=== PATIENT | male | born 1970 | race Caucasian/White ===

== ENCOUNTER 2016-07-09 23:34 | Inpatient (IN) | payer MEDICARE, OTHER ==
[2016-07-10] MEDS ORDERED: RX INFO: IV CONTRAST WAS GIVEN 1 EACH MISC MISCELLANE PRN (00:44)
[2016-07-10] MEDS ORDERED: ACETAMINOPHEN TAB 500 MG TAB PO STA (00:44)
[2016-07-10] MEDS ORDERED: IBUPROFEN 600 MG TAB PO STA (00:44)
[2016-07-10 00:58] LABS: Basophils % (A) 0 %; CH 29.2; CHCM 32.1; Eosinophils # (A) 0.1 k/uL (0-0.7); Eosinophils % (A) 1 %; HDW 2.65; HGB 13.1 gm/dL (13.0-17.5); Luc # (Auto) 0.11; Luc % (Auto) 1; Lymphocytes # (A) 0.7 k/uL (1.0-4.8); Lymphocytes % (A) 7 %; MCH 29.2 pg (25.0-35.0); MCV 91.3 fL (80.0-100.0); Mean Platelet Volume 9.9; Monocytes # (A) 0.7 k/uL (0-1.0); Monocytes % (A) 7 %; Neutrophils # (A) 8.6 k/uL (1.3-7.7); Neutrophils % (A) 85 %; RDW 15.5 % (11.5-15.5); WBC 10.1 k/uL (3.8-10.6); WBC (Perox) 9.43
[2016-07-10] MEDS ORDERED: PIPERACILLIN-TAZOBACTAM 3.375 GM in DEXTROSE/WATER 1 50ML.BAG IVPB STA (00:58)
[2016-07-10] MEDS ORDERED: IV VANCOMYCIN PER PHARMACY 1 EACH MISC MISCELLANE PRN (00:58)
--- NOTE | 2016-07-10 01:03 | ED ---
General Adult HPI - General Source: patient, RN notes reviewed Mode of arrival: ambulatory Limitations: no limitations <Quynh Rolle - Last Filed: 07/10/16 02:32> <Lavell Zhu - Last Filed: 07/10/16 02:45> - General Chief complaint: Skin/Abscess/Foreign Body Stated complaint: neck pain Time Seen by Provider: 07/10/16 00:19 - History of Present Illness Initial comments: This is a 46-year-old male presents with swelling to the left side neck that started yesterday. Patient states he noticed swelling just below the left ear yesterday and woke up this morning with the swelling and redness extending to the front of his neck. Patient denies any fevers. Patient denies any trouble breathing or swallowing. Patient states this never happened to him before. Patient denies any sore throat, ear pain. Patient has been coughing. Patient also complains of a headache. Patient denies any recent shortness breath, chest pain, abdominal pain, nausea/vomiting/diarrhea, back pain, numbness, tingling, hematuria, or visual changes, or any other complaints. (Quynh Rolle) - Related Data Home Medications Medication Instructions Recorded Confirmed Albuterol Nebulized [Ventolin 2.5 mg INHALATION RT-Q4H PRN 08/06/15 05/09/16 Nebulized] FLUoxetine HCL [PROzac] 20 mg PO DAILY 08/06/15 05/09/16 Levothyroxine Sodium [Synthroid] 88 mcg PO DAILY 12/20/15 05/09/16 Methylphenidate HCl 20 mg PO TID 12/20/15 05/09/16 QUEtiapine FUMARATE 100 mg PO HS 12/20/15 05/09/16 Theophylline Anhydrous [Carrington-24] 300 mg PO DAILY 12/20/15 05/09/16 clonazePAM [KlonoPIN] 0.5 mg PO TID 12/20/15 05/09/16 Albuterol Sulfate [Proair Hfa] 2 puff INHALATION RT-Q6H PRN 02/01/16 05/09/16 Mirtazapine [Remeron] 45 mg PO HS 03/26/16 05/09/16 Previous Rx's Medication Instructions Recorded Budesonide [Pulmicort] 0.5 mg INHALATION RT-BID nebu 03/29/16 Famotidine [Pepcid] 40 mg PO HS tab 03/29/16 Formoterol Fumarate [Perforomist] 20 mcg INHALATION RT-BID nebu 03/29/16 Ipratropium-Albuterol Nebulize 3 ml INHALATION RT-QID ampul.neb 03/29/16 [Duoneb 0.5 mg-3 mg/3 ml Soln] Levofloxacin [Levaquin] 750 mg PO DAILY@1800 #7 tab 03/29/16 Mirtazapine [Remeron] 15 mg PO HS tab 03/29/16 Montelukast [Singulair] 10 mg PO HS #30 tab 03/29/16 Theophylline 24 Hour [Carrington-24] 300 mg PO BID cap.er.24h 03/29/16 predniSONE 40 mg PO DAILY #12 tab 03/29/16 Allergies Allergy/AdvReac Type Severity Reaction Status Date / Time No Known Allergies Allergy Verified 07/09/16 23:37 Review of Systems ROS Other: All systems not noted in ROS Statement are negative. <Quynh Rolle - Last Filed: 07/10/16 02:32> ROS Other: All systems not noted in ROS Statement are negative. <Lavell Zhu - Last Filed: 07/10/16 02:45> ROS Statement: Those systems with pertinent positive or pertinent negative responses have been documented in the HPI. Past Medical History Past Medical History: Asthma, COPD Additional Past Medical History / Comment(s): BACK PAIN, THROAT TUMOR REMOVED- CANCER, chemo and radiation History of Any Multi-Drug Resistant Organisms: None Reported Past Surgical History: Appendectomy Additional Past Surgical History / Comment(s): NECK SURGERY, TRACHEOTOMY, right knee surgery as a child Past Anesthesia/Blood Transfusion Reactions: No Reported Reaction Past Psychological History: ADD/ADHD, Anxiety, Bipolar, Depression, PTSD Smoking Status: Current every day smoker Past Alcohol Use History: None Reported Past Drug Use History: Marijuana Additional Drug Use History / Comment(s): 1-2 times a week - Past Family History Mother Additional Family Medical History / Comment(s): mom of colon cancer <Quynh Rolle - Last Filed: 07/10/16 02:32> General Exam Limitations: no limitations <Quynh Rolle - Last Filed: 07/10/16 02:32> <Lavell Zhu - Last Filed: 07/10/16 02:45> - General Exam Comments Initial Comments: General: The patient is awake and alert, in no distress, and does not appear acutely ill. Eye: Pupils are equal, round and reactive to light, extra-ocular movements are intact. No nystagmus. There is normal conjunctiva bilaterally. No signs of icterus. Ears: TMs pink and pearly with intact cone of light bilaterally. Normal external ear canals Nose: Nasal turbinates pink and moist Mouth and throat: There are moist mucous membranes and no oral lesions. Neck: Patient is holding his neck with his head rotated to the right. There is swelling and erythema extending from just below the left ear to the front of the neck. Patient has an old trach site that is well-healed. The neck is supple, there is no JVD. Cardiovascular: There is a regular rate and rhythm. No murmur, rub or gallop is appreciated. Respiratory: Lungs are clear to auscultation, respirations are non-labored, breath sounds are equal. No wheezes, stridor, rales, or rhonchi. Gastrointestinal: Soft, non-distended, non-tender abdomen without masses or organomegaly noted. There is no rebound or guarding present. No CVA tenderness. Bowel sounds are unremarkable. Musculoskeletal: Normal ROM, no tenderness. Strength 5/5. Sensation intact. Radial pulses equal bilaterally 2+. Neurological: A&O x 3. CN II-XII intact, There are no obvious motor or sensory deficits. Coordination appears grossly intact. Speech is normal. Skin: Skin is warm and dry and no rashes or lesions are noted. Psychiatric: Cooperative, appropriate mood & affect, normal judgment. (Quynh Rolle) EKG Findings - EKG Comments: EKG Findings:: An EKG was done at 1:34 showing sinus tachycardia with a right bundle branch block. The ventricular rate of 104, TX interval of 132, QRS duration of 116 and QTc of 444. This EKG was compared with an EKG on 2015 with similar findings except the comparison EKG was normal sinus rhythm. <Quynh Rolle - Last Filed: 07/10/16 02:32> Medical Decision Making - Lab Data Result diagrams: 07/10/16 00:36 07/10/16 00:36 <Quynh Rolle - Last Filed: 07/10/16 02:32> - Lab Data Result diagrams: 07/10/16 00:36 07/10/16 00:36 <Lavell Zhu - Last Filed: 07/10/16 02:45> - Medical Decision Making This is a 38-year-old male presents with swelling of left-sided neck started yesterday. On physical exam Patient is holding his neck with his head rotated to the right. There is swelling and erythema extending from just below the left ear to the front of the neck. Patient has an old trach site that is well- healed. The neck is supple, there is no JVD. Patient developed a fever in the EC today and was started on Tylenol and ibuprofen. Patient meets sepsis criteria. Sepsis protocol was initiated. Labs were drawn and reviewed. Patient will be started on IV Zosyn and vancomycin. An EKG was done at 1:34 showing sinus tachycardia with a right bundle branch block. The ventricular rate of 104, TX interval of 132, QRS duration of 116 and QTc of 444. This EKG was compared with an EKG on 05/09/2016 with similar findings except the comparison EKG was normal sinus rhythm. CT soft tissue neck was done and reviewed showing: #1 suggestion of diffuse cellulitis changes in the neck skin and subcutaneous areas without significant abscess collections. #2 ethmoid sinusitis changes. Report read by Dr. Vicente. Chest x-ray was done and reviewed showing: #1 possible active lung infiltrates or pneumonia changes in the right middle lobe of the lung. #2 chronic lung changes. Report read by . Influenza was checked and came back negative. I discussed this with attending physician Dr. Zhu who agrees that patient should be admitted for IV antibiotics for cellulitis. At this time Dr. Ramos was contacted. (Quynh Rolle) Patient was reevaluated by myself, Dr. Zhu. Patient resting comfortably in bed. Patient does have cellulitis extending across the anterior neck. Patient states discomfort no worsening of the previous trach site another person the neck. Patient does meet sepsis criteria. CT results and labs reviewed. Patient updated on results and plan. Dr. Ramos has been paged for admission. (Lavell Zhu) - Lab Data Lab Results 07/10/16 07/10/16 07/10/16 Range/Units 00:36 00:36 00:36 WBC 10.1 (3.8-10.6) k/uL RBC 4.50 (4.30-5.90) m/uL Hgb 13.1 (13.0-17.5) gm/dL Hct 41.0 (39.0-53.0) % MCV 91.3 (80.0-100.0) fL MCH 29.2 (25.0-35.0) pg MCHC 32.0 (31.0-37.0) g/dL RDW 15.5 (11.5-15.5) % Plt Count 145 L (150-450) k/uL Neutrophils % 85 % Lymphocytes % 7 % Monocytes % 7 % Eosinophils % 1 % Basophils % 0 % Neutrophils # 8.6 H (1.3-7.7) k/uL Lymphocytes # 0.7 L (1.0-4.8) k/uL Monocytes # 0.7 (0-1.0) k/uL Eosinophils # 0.1 (0-0.7) k/uL Basophils # 0.0 (0-0.2) k/uL PT (9.0-12.0) sec INR (<1.1) APTT (22.0-30.0) sec Sodium 137 (137-145) mmol/L Potassium 4.5 (3.5-5.1) mmol/L Chloride 100 (98-107) mmol/L Carbon Dioxide 27 (22-30) mmol/L Anion Gap 10 mmol/L BUN 19 (9-20) mg/dL Creatinine 1.10 (0.66-1.25) mg/dL Est GFR (MDRD) Af Amer >60 (>60 ml/min/1.73 sqM) Est GFR (MDRD) Non-Af >60 (>60 ml/min/1.73 sqM) Glucose 108 H (74-99) mg/dL Plasma Lactic Acid Edgar (0.7-2.0) mmol/L Calcium 8.9 (8.4-10.2) mg/dL Total Bilirubin 0.7 (0.2-1.3) mg/dL AST 16 L (17-59) U/L ALT 24 (21-72) U/L Alkaline Phosphatase 80 (38-126) U/L Total Creatine Kinase 85 (55-170) U/L CK-MB (CK-2) 1.4 (0.0-2.4) ng/mL CK-MB (CK-2) Rel Index 1.6 Troponin I <0.012 (0.000-0.034) ng/mL Total Protein 6.8 (6.3-8.2) g/dL Albumin 3.9 (3.5-5.0) g/dL Cortisol 5 ug/dL Urine Color Urine Appearance (Clear) Urine pH (5.0-8.0) Ur Specific [place] (1.001-1.035) Urine Protein (Negative) Urine Glucose (UA) (Negative) Urine Ketones (Negative) Urine Blood (Negative) Urine Nitrate (Negative) Urine Bilirubin (Negative) Urine Urobilinogen (<2.0) mg/dL Ur Leukocyte Esterase (Negative) Urine RBC (0-5) /hpf Urine WBC (0-5) /hpf Ur Squamous Epith Cells (0-4) /hpf Hyaline Casts (0-2) /lpf Urine Mucus (None) /hpf Influenza Type A RNA (Not Detectd) Influenza Type B (PCR) (Not Detectd) 07/10/16 07/10/16 07/10/16 Range/Units 00:36 00:36 00:36 WBC (3.8-10.6) k/uL RBC (4.30-5.90) m/uL Hgb (13.0-17.5) gm/dL Hct (39.0-53.0) % MCV (80.0-100.0) fL MCH (25.0-35.0) pg MCHC (31.0-37.0) g/dL RDW (11.5-15.5) % Plt Count (150-450) k/uL Neutrophils % % Lymphocytes % % Monocytes % % Eosinophils % % Basophils % % Neutrophils # (1.3-7.7) k/uL Lymphocytes # (1.0-4.8) k/uL Monocytes # (0-1.0) k/uL Eosinophils # (0-0.7) k/uL Basophils # (0-0.2) k/uL PT 10.1 (9.0-12.0) sec INR 1.0 (<1.1) APTT 27.2 (22.0-30.0) sec Sodium (137-145) mmol/L Potassium (3.5-5.1) mmol/L Chloride (98-107) mmol/L Carbon Dioxide (22-30) mmol/L Anion Gap mmol/L BUN (9-20) mg/dL Creatinine (0.66-1.25) mg/dL Est GFR (MDRD) Af Amer (>60 ml/min/1.73 sqM) Est GFR (MDRD) Non-Af (>60 ml/min/1.73 sqM) Glucose (74-99) mg/dL Plasma Lactic Acid Edgar 1.0 (0.7-2.0) mmol/L Calcium (8.4-10.2) mg/dL Total Bilirubin (0.2-1.3) mg/dL AST (17-59) U/L ALT (21-72) U/L Alkaline Phosphatase (38-126) U/L Total Creatine Kinase (55-170) U/L CK-MB (CK-2) (0.0-2.4) ng/mL CK-MB (CK-2) Rel Index Troponin I (0.000-0.034) ng/mL Total Protein (6.3-8.2) g/dL Albumin (3.5-5.0) g/dL Cortisol ug/dL Urine Color Urine Appearance (Clear) Urine pH (5.0-8.0) Ur Specific [place] (1.001-1.035) Urine Protein (Negative) Urine Glucose (UA) (Negative) Urine Ketones (Negative) Urine Blood (Negative) Urine Nitrate (Negative) Urine Bilirubin (Negative) Urine Urobilinogen (<2.0) mg/dL Ur Leukocyte Esterase (Negative) Urine RBC (0-5) /hpf Urine WBC (0-5) /hpf Ur Squamous Epith Cells (0-4) /hpf Hyaline Casts (0-2) /lpf Urine Mucus (None) /hpf Influenza Type A RNA Not Detected (Not Detectd) Influenza Type B (PCR) Not Detected (Not Detectd) 07/10/16 Range/Units 02:23 WBC (3.8-10.6) k/uL RBC (4.30-5.90) m/uL Hgb (13.0-17.5) gm/dL Hct (39.0-53.0) % MCV (80.0-100.0) fL MCH (25.0-35.0) pg MCHC (31.0-37.0) g/dL RDW (11.5-15.5) % Plt Count (150-450) k/uL Neutrophils % % Lymphocytes % % Monocytes % % Eosinophils % % Basophils % % Neutrophils # (1.3-7.7) k/uL Lymphocytes # (1.0-4.8) k/uL Monocytes # (0-1.0) k/uL Eosinophils # (0-0.7) k/uL Basophils # (0-0.2) k/uL PT (9.0-12.0) sec INR (<1.1) APTT (22.0-30.0) sec Sodium (137-145) mmol/L Potassium (3.5-5.1) mmol/L Chloride (98-107) mmol/L Carbon Dioxide (22-30) mmol/L Anion Gap mmol/L BUN (9-20) mg/dL Creatinine (0.66-1.25) mg/dL Est GFR (MDRD) Af Amer (>60 ml/min/1.73 sqM) Est GFR (MDRD) Non-Af (>60 ml/min/1.73 sqM) Glucose (74-99) mg/dL Plasma Lactic Acid Edgar (0.7-2.0) mmol/L Calcium (8.4-10.2) mg/dL Total Bilirubin (0.2-1.3) mg/dL AST (17-59) U/L ALT (21-72) U/L Alkaline Phosphatase (38-126) U/L Total Creatine Kinase (55-170) U/L CK-MB (CK-2) (0.0-2.4) ng/mL CK-MB (CK-2) Rel Index Troponin I (0.000-0.034) ng/mL Total Protein (6.3-8.2) g/dL Albumin (3.5-5.0) g/dL Cortisol ug/dL Urine Color Yellow Urine Appearance Clear (Clear) Urine pH 6.0 (5.0-8.0) Ur Specific [place] 1.022 (1.001-1.035) Urine Protein 1+ H (Negative) Urine Glucose (UA) Negative (Negative) Urine Ketones Negative (Negative) Urine Blood Trace H (Negative) Urine Nitrate Negative (Negative) Urine Bilirubin Negative (Negative) Urine Urobilinogen 2.0 (<2.0) mg/dL Ur Leukocyte Esterase Negative (Negative) Urine RBC 4 (0-5) /hpf Urine WBC 1 (0-5) /hpf Ur Squamous Epith Cells <1 (0-4) /hpf Hyaline Casts 3 H (0-2) /lpf Urine Mucus Occasional H (None) /hpf Influenza Type A RNA (Not Detectd) Influenza Type B (PCR) (Not Detectd) Disposition <Quynh Rolle - Last Filed: 07/10/16 02:32> <Lavell Zhu - Last Filed: 07/10/16 02:45> Clinical Impression: Cellulitis, Sepsis Disposition: ADMITTED IP TO THIS HOSP Referrals: Abhilash Ramos MD [Primary Care Provider] - 1-2 days
[2016-07-10 01:08] LABS: ALT 24 U/L (21-72); AST 16 U/L (17-59); Alkaline Phosphatase 80 U/L (38-126); Anion Gap 10 mmol/L; Blood Urea Nitrogen 19 mg/dL (9-20); Calcium 8.9 mg/dL (8.4-10.2); Carbon Dioxide 27 mmol/L (22-30); Chloride 100 mmol/L (98-107); Glucose 108 mg/dL (74-99); Non-African American GFR(MDRD) >60 (>60 ml/min/1.73 sqM); Partial Thromboplastin Time 27.2 sec (22.0-30.0); Potassium 4.5 mmol/L (3.5-5.1); Prothrombin Time 10.1 sec (9.0-12.0); Sodium 137 mmol/L (137-145); Total Bilirubin 0.7 mg/dL (0.2-1.3); Total Protein 6.8 g/dL (6.3-8.2)
[2016-07-10] MEDS: SODIUM CHLORIDE 0.9% 500 ML IV SCH ×2 (01:22→04:05)
[2016-07-10 01:26] LABS: Creatine Kinase 85 U/L (55-170)
--- NOTE | 2016-07-10 01:27 | XR ---
EXAMINATION TYPE: XR chest 2V DATE OF EXAM: 07/10/2016 1:06 AM COMPARISON: May 09, 2016 HISTORY: Cough congestion and weakness since yesterday TECHNIQUE: Frontal and lateral views of the chest are obtained. FINDINGS: Mild chronic lung changes are suggested bilaterally. Peribronchial cuffing is noted with possible chr onic bronchitis changes. There is mild increased opacities in the right infrahilar area as seen also in the lateral view and m ay represent mild active infiltrates in the right middle lobe of lung. The cardiac silhouette size is within normal limits. The osseous structures are intact. IMPRESSION: 1. Possible active lung infiltrates or pneumonia changes in the right middle lobe of lung. 2. Chronic lung changes.
[2016-07-10] MEDS ORDERED: VANCOMYCIN 1,500 MG in SODIUM CHLORIDE 0.9% 250 ML IVPB ONE (01:30)
[2016-07-10 01:37] LABS: Creatine Kinase MB 1.4 ng/mL (0.0-2.4); Troponin I <0.012 ng/mL (0.000-0.034)
--- NOTE | 2016-07-10 02:20 | CT ---
EXAMINATION TYPE: CT soft tissue neck w con DATE OF EXAM: 07/10/2016 2:00 AM COMPARISON: NONE HISTORY: Left sided neck swelling, redness CT DLP: 461.90 mGycm Automated exposure control for dose reduction was used. CONTRAST: CT scan of the neck is performed following with IV Contrast, patient injected with 100 mL of Omnipaqu e 300. Axial images are obtained, coronal and sagittal reformatted images are reviewed. FINDINGS: There is evidence of diffuse skin thickening in the anterior neck more on the left side and the centr al portion and spreading to the right with edema changes most likely representing diffuse cellulitis changes extending into subcutaneous areas. No significant abscess or free fluid collections are noted in the soft tissues of neck behind the skin. Airway: Slight irregularity is noted in the laryngeal area in the axial image 55 and coronal image 28 and is probably related to benign soft tissues without definite enhancing abscess collection or free fluid collections. Parotid/submandibular glands: No gross abnormality seen. Carotid/Vascular Structures: Mild atherosclerotic calcified plaques are noted in bilateral carotid bu lb and internal carotid arteries. Osseous Structures: Mild degenerative changes are present. Other: Mild mucosal thickening is noted in the ethmoid sinuses with chronic sinusitis changes. IMPRESSION: 1. Suggestion of diffuse cellulitis changes in the neck skin and subcutaneous areas without significa nt abscess collections. 2. Ethmoid sinusitis changes. A phone report is given to Quynh Rolle the PAC at the time of the dictation.
[2016-07-10] MEDS ORDERED: HYDROmorphone 1 MG/ML 1 ML SYRINGE IVP STA (02:21)
[2016-07-10 02:31] LABS: Appearance,Urine Clear (Clear); Bilirubin,Urine Negative (Negative); Glucose,Urine (UA) Negative (Negative); Ketones,Urine Negative (Negative); Leukocyte Esterase,Urine Negative (Negative); Mucus,Urine Occasional /hpf; Nitrite,Urine Negative (Negative); Particle Count 3695; Protein,Urine 1+ (Negative); RBC,Urine 4 /hpf (0-5); Specific Gravity,Urine 1.022 (1.001-1.035); Squamous Epithelial Cell,Urine <1 /hpf (0-4); UA Billing (MACRO vs. MICRO) MICRO; WBC,Urine 1 /hpf (0-5)
[2016-07-10] MEDS ORDERED: IBUPROFEN 400 MG TAB PO PRN (02:34)
[2016-07-10] MEDS ORDERED: NALOXONE 0.4 MG/ML 1 ML VIAL IV PRN (02:34)
[2016-07-10] MEDS ORDERED: HYDROmorphone 1 MG/ML 1 ML SYRINGE IV PRN (02:34)
[2016-07-10] MEDS ORDERED: ACETAMINOPHEN TAB 325 MG TAB PO PRN (02:34)
[2016-07-10 03:35] VITALS: BMI 29.2
[2016-07-10 07:21] LABS: Creatine Kinase 84 U/L (55-170)
[2016-07-10 07:34] LABS: Creatine Kinase MB 1.9 ng/mL (0.0-2.4); Troponin I <0.012 ng/mL (0.000-0.034)
[2016-07-10] MEDS: SODIUM CHLORIDE 0.9% 1,000 ML IV SCH (08:20)
[2016-07-10] MEDS: HYDROcodone/APAP 5-325MG 1 EACH TAB PO PRN ×3 (08:26→18:37)
[2016-07-10] MEDS: MORPHINE SULFATE 4 MG/ML SYRINGE IV PRN ×3 (12:20→21:50)
[2016-07-10] MEDS: VANCOMYCIN 1,500 MG in SODIUM CHLORIDE 0.9% 250 ML IVPB SCH ×2 (12:38→23:07)
[2016-07-10 12:46] LABS: Creatine Kinase 95 U/L (55-170)
[2016-07-10 12:59] LABS: Creatine Kinase MB 2.2 ng/mL (0.0-2.4); Troponin I <0.012 ng/mL (0.000-0.034)
[2016-07-10] MEDS ORDERED: ASPRIN PO PRN (13:21)
[2016-07-10] MEDS ORDERED: BUTALB PO PRN (13:21)
[2016-07-10] MEDS ORDERED: CAFF PO PRN (13:21)
[2016-07-10] MEDS ORDERED: ALBUTEROL NEBULIZED 2.5 MG/3 ML INHALATION PRN (13:21)
[2016-07-10] MEDS ORDERED: ALBUTEROL INHALER 60 PUFF/8 GM INHALER INHALATION PRN (13:21)
[2016-07-10] MEDS ORDERED: traMADol 50 MG TAB PO PRN (13:21)
[2016-07-10] MEDS ORDERED: ERGOCALCIFEROL 50,000 UNIT CAP PO SCH (14:00)
[2016-07-10] MEDS: THEOPHYLLINE 24 HOUR 300 MG CAP.ER.24H PO SCH (14:20)
[2016-07-10] MEDS: FLUoxetine HCL 20 MG CAP PO SCH (14:20)
[2016-07-10] MEDS: LEVOTHYROXINE 75 MCG TAB PO SCH (14:20)
[2016-07-10] MEDS: METHYLPHENIDATE HCL 10 MG TAB PO SCH ×2 (16:37→21:50)
[2016-07-10] MEDS: clonazePAM 0.5 MG TAB PO SCH ×2 (16:37→21:51)
[2016-07-10] MEDS: PIPERACILLIN-TAZOBACTAM 3.375 GM in DEXTROSE/WATER 1 50ML.BAG IVPB SCH (17:30)
[2016-07-10] MEDS: SYMBICORT 160-4.5 MCG INHALER INHALATION SCH (18:19)
[2016-07-10] MEDS: IPRATROPIUM-ALBUTEROL 3 ML NEB INHALATION PRN (18:20)
[2016-07-10] MEDS ORDERED: ONDANSETRON 4 MG/2 ML VIAL IVP PRN (19:47)
[2016-07-10] MEDS: QUEtiapine 100 MG TAB PO SCH (21:51)
[2016-07-10] MEDS: MIRTAZAPINE 15 MG TAB PO SCH (21:51)
[2016-07-10] MEDS: MONTELUKAST 10 MG TAB PO SCH (21:51)
[2016-07-11] MEDS: PIPERACILLIN-TAZOBACTAM 3.375 GM in DEXTROSE/WATER 1 50ML.BAG IVPB SCH ×5 (01:01→19:17)
[2016-07-11] MEDS: LEVOTHYROXINE 75 MCG TAB PO SCH (05:33)
--- NOTE | 2016-07-11 07:32 | HP ---
DATE OF ADMISSION: CHIEF COMPLAINT: Pain, redness and swelling on the left side of the neck. HISTORY OF PRESENT ILLNESS: This is another admission for this 46-year-old white male. He started to develop pain and redness on the left side of the neck. He came to the emergency room and was found to have a cellulitis running from the mandible down to the lateral neck. There is no open area occluding folliculitis or any other possible source of entry. He has had no fever or chills. He has had no earache, toothache, etc. REVIEW OF SYSTEMS: Otherwise normal. He has had no neurologic problems, chest pain or shortness of breath. No cough, hemoptysis, shaking, chills or fever, abdominal pain, vomiting, diarrhea, etc. Past medical history, family history and personal and social histories are all unremarkable or unchanged or not significant otherwise. ALLERGIES: He is not allergic to anything. He is on Seroquel 100 mg at bedtime, levothyroxine 0.15 mg once a day, Ventolin HFA, vitamin D 50,000 units a month, Synthroid 0.1 mg a day, Ultram 50 every 6 hours p.r.n., Fiorinal 1 q.4 p.r.n., Prozac 20 mg once a day, Ritalin 20 mg 3 times a day, and Klonopin 0.5 mg 3 times a day. Remainder of his history is unremarkable. PHYSICAL EXAMINATION: VITAL SIGNS: Blood pressure is 112/60 with a pulse of 84, respirations 16, temperature 97.5. In general he appeared to be well-developed, well-nourished no acute distress. Skin color is normal. Skin is warm and dry. Lymph nodes are not enlarged. Head, ears, eyes, nose, mouth, and throat are normal. Neck veins are not distended. He has cellulitis of the left side of the neck from the angle and the body of the mandible down to the clavicle. There is no adenopathy. Ear was clear. Neck was supple. The chest was clear to auscultation and percussion. Cardiac exam demonstrated normal sinus rhythm with no murmurs or extra sounds. Abdomen was soft, nontender without visceromegaly or masses. Extremities are normal. Neurologically he is intact. IMPRESSION: 1. Cellulitis of the left side of the neck. 2. Schizophrenia. 3. Chronic obstructive pulmonary disease. 4. Hypothyroidism. 5. Attention deficit disorder. PLAN: 1. Bedrest. 2. IV fluids. 3. IV antibiotics.
[2016-07-11] MEDS: SYMBICORT 160-4.5 MCG INHALER INHALATION SCH ×2 (07:47→20:31)
[2016-07-11] MEDS: IPRATROPIUM-ALBUTEROL 3 ML NEB INHALATION PRN ×4 (07:47→20:31)
[2016-07-11] MEDS: TIOTROPIUM 18 MCG/PUFF INHALER INHALATION SCH (07:47)
[2016-07-11] MEDS: SODIUM CHLORIDE 0.9% 1,000 ML IV SCH (09:12)
[2016-07-11] MEDS: clonazePAM 0.5 MG TAB PO SCH ×3 (09:16→23:06)
[2016-07-11] MEDS: THEOPHYLLINE 24 HOUR 300 MG CAP.ER.24H PO SCH (09:16)
[2016-07-11] MEDS: METHYLPHENIDATE HCL 10 MG TAB PO SCH ×3 (09:16→23:07)
[2016-07-11] MEDS: FLUoxetine HCL 20 MG CAP PO SCH (09:16)
[2016-07-11] MEDS ORDERED: VANCOMYCIN TROUGH DUE 1 EACH MISC MISCELLANE ONE (11:00)
[2016-07-11 11:34] LABS: ALT 26 U/L (21-72); AST 16 U/L (17-59); Alkaline Phosphatase 68 U/L (38-126); Anion Gap 9 mmol/L; Blood Urea Nitrogen 18 mg/dL (9-20); Calcium 8.8 mg/dL (8.4-10.2); Carbon Dioxide 32 mmol/L (22-30); Chloride 100 mmol/L (98-107); Glucose 108 mg/dL (74-99); Non-African American GFR(MDRD) >60 (>60 ml/min/1.73 sqM); Potassium 4.5 mmol/L (3.5-5.1); Sodium 141 mmol/L (137-145); Total Bilirubin 0.4 mg/dL (0.2-1.3); Total Protein 6.2 g/dL (6.3-8.2)
[2016-07-11 11:38] LABS: Basophils % (A) 0 %; CH 29.1; CHCM 30.7; Eosinophils # (A) 0.1 k/uL (0-0.7); Eosinophils % (A) 2 %; HDW 2.78; HGB 12.4 gm/dL (13.0-17.5); Hypochromasia Moderate; Luc # (Auto) 0.08; Luc % (Auto) 1; Lymphocytes # (A) 0.5 k/uL (1.0-4.8); Lymphocytes % (A) 8 %; MCH 28.8 pg (25.0-35.0); MCHC 30.2 g/dL (31.0-37.0); MCV 95.3 fL (80.0-100.0); Mean Platelet Volume 10.6; Monocytes # (A) 0.5 k/uL (0-1.0); Monocytes % (A) 8 %; Neutrophils # (A) 5.2 k/uL (1.3-7.7); Neutrophils % (A) 81 %; RDW 15.5 % (11.5-15.5); WBC 6.4 k/uL (3.8-10.6); WBC (Perox) 6.85
[2016-07-11] MEDS: VANCOMYCIN 1,500 MG in SODIUM CHLORIDE 0.9% 250 ML IVPB SCH (12:23)
[2016-07-11] MEDS: MORPHINE SULFATE 4 MG/ML SYRINGE IV PRN (12:24)
[2016-07-11] MEDS ORDERED: RX INFO: IV CONTRAST WAS GIVEN 1 EACH MISC MISCELLANE PRN (12:27)
[2016-07-11] MEDS: HEPARIN SODIUM,PORCINE 5,000 UNIT/ML 1 ML VIAL SQ SCH (17:12)
[2016-07-11] MEDS: HYDROcodone/APAP 5-325MG 1 EACH TAB PO PRN (19:27)
[2016-07-11] MEDS: MONTELUKAST 10 MG TAB PO SCH (21:09)
[2016-07-11] MEDS: FAMOTIDINE 20 MG TAB PO SCH (21:09)
[2016-07-11] MEDS: MIRTAZAPINE 15 MG TAB PO SCH (21:09)
[2016-07-11] MEDS: QUEtiapine 100 MG TAB PO SCH (21:09)
--- NOTE | 2016-07-11 22:39 | PN ---
CHIEF COMPLAINT: Cellulitis left side of the neck. HISTORY OF PRESENT ILLNESS: This gentleman is about the same. He is still complaining of a lot of pain, but there is also some swelling in that area. PHYSICAL EXAMINATION: Head, ears, eyes, mouth, and throat are normal except for the redness, swelling and tenderness on left side of neck. Chest is clear and cardiac is normal. IMPRESSION: Cellulitis of the left side of the neck. PLAN: 1. CT of the neck. 2. Continue antibiotics.
[2016-07-12] MEDS: HEPARIN SODIUM,PORCINE 5,000 UNIT/ML 1 ML VIAL SQ SCH ×3 (00:30→16:42)
[2016-07-12] MEDS: PIPERACILLIN-TAZOBACTAM 3.375 GM in DEXTROSE/WATER 1 50ML.BAG IVPB SCH ×3 (00:32→16:58)
[2016-07-12] MEDS ORDERED: VANCOMYCIN 1,250 MG in SODIUM CHLORIDE 0.9% 250 ML IVPB SCH (04:00)
[2016-07-12] MEDS: SODIUM CHLORIDE 0.9% 1,000 ML IV SCH (04:43)
[2016-07-12] MEDS: LEVOTHYROXINE 75 MCG TAB PO SCH (06:43)
[2016-07-12] MEDS: METHYLPHENIDATE HCL 10 MG TAB PO SCH ×3 (07:33→22:09)
[2016-07-12] MEDS: HYDROcodone/APAP 5-325MG 1 EACH TAB PO PRN ×2 (07:33→13:03)
[2016-07-12] MEDS: clonazePAM 0.5 MG TAB PO SCH ×3 (07:33→22:09)
[2016-07-12] MEDS: IPRATROPIUM-ALBUTEROL 3 ML NEB INHALATION PRN ×2 (07:35→20:22)
[2016-07-12] MEDS: FLUoxetine HCL 20 MG CAP PO SCH (07:35)
[2016-07-12] MEDS: SYMBICORT 160-4.5 MCG INHALER INHALATION SCH ×2 (07:36→20:24)
[2016-07-12] MEDS: THEOPHYLLINE 24 HOUR 300 MG CAP.ER.24H PO SCH (07:36)
[2016-07-12 07:56] LABS: Basophils % (A) 0 %; CH 28.8; CHCM 30.6; Eosinophils # (A) 0.1 k/uL (0-0.7); Eosinophils % (A) 2 %; HCT 41.7 % (39.0-53.0); HDW 2.79; HGB 12.6 gm/dL (13.0-17.5); Hypochromasia Moderate; Luc # (Auto) 0.12; Luc % (Auto) 2; Lymphocytes # (A) 0.7 k/uL (1.0-4.8); Lymphocytes % (A) 12 %; MCH 28.6 pg (25.0-35.0); MCHC 30.3 g/dL (31.0-37.0); MCV 94.3 fL (80.0-100.0); Mean Platelet Volume 9.5; Monocytes # (A) 0.4 k/uL (0-1.0); Monocytes % (A) 7 %; Neutrophils # (A) 4.4 k/uL (1.3-7.7); Neutrophils % (A) 77 %; RBC 4.42 m/uL (4.30-5.90); WBC 5.7 k/uL (3.8-10.6); WBC (Perox) 5.76
[2016-07-12 08:15] LABS: ALT 19 U/L (21-72); AST 15 U/L (17-59); Alkaline Phosphatase 70 U/L (38-126); Anion Gap 11 mmol/L; Blood Urea Nitrogen 28 mg/dL (9-20); Calcium 8.8 mg/dL (8.4-10.2); Carbon Dioxide 30 mmol/L (22-30); Chloride 101 mmol/L (98-107); Glucose 91 mg/dL (74-99); Non-African American GFR(MDRD) 51 (>60 ml/min/1.73 sqM); Potassium 4.4 mmol/L (3.5-5.1); Sodium 142 mmol/L (137-145); Total Bilirubin 0.4 mg/dL (0.2-1.3); Total Protein 6.4 g/dL (6.3-8.2)
[2016-07-12] MEDS: TIOTROPIUM 18 MCG/PUFF INHALER INHALATION SCH (08:23)
--- NOTE | 2016-07-12 14:15 | CDI ---
In responding to this query, please exercise your independent professional judgment. The [facility] Coding Staff and Clinical Documentation Specialists appreciate your assistance in clarifying documentation, maintaining compliance with coding guidelines, accurately documenting patients condition and capturing severity of illness. The fact that a question is asked does not imply that any particular answer is desired or expected. Communication forms are a method of clarifying documentation and are not made part of the Legal Health Record. Thank you in advance for your clarification. Last Revision, March 2015 Meeta Boyle [address] [place] [address] Documentation Clarification Form Date: 07/12/2016 1:24:00 PM From: Lana Nicholas Admit Date: 07/10/2016 2:32:00 AM Patient Name: Jason Oliver Visit Number: [id number] Discharge Date: Dr. Abhilash Ramos/Jessica Rogers [employer] ED evaluation of swelling to the left side neck History/Risk Factors: Throat Tumor -Cancer chemo and radiation, ADD/ADHD, Bipolar, Current every day smoker Clinical Indicators: There is swelling and erythema extending from just below the left ear to the front of the neck. He has an old trach site that is well- healed. He developed a fever in ER. Per evaluation Patient meets Sepsis criteria and sepsis protocol was initiated. WBC/Left Shift: 10.1 CXR: Possible active lung infiltrates of pneumonia changes in the right middle lobe of lung. Chronic lung changes CT Neck: Diffuse cellulitis changes extending into subcutaneous areas without abscess collection. Lactic acid: 1.0 Blood cultures: No Growth after 48 hours Vitals signs on admission: 146/78 118 22, 92 % RA, Temp Max 100.4 Other Clinical Indicators: Report cough, congestion and weakness. Treatment: Antibiotics: IV Zosyn, IV Vancomycin IV Fluid bolus In your professional opinion, can you please clarify if these findings signify one of the following conditions, whether the condition is POA, and cause, if known? Sepsis Severe Sepsis Septic Shock Unable to determine Other, please specify * Identify the (suspected) organism * Link or clarify if there is associated (due to/with): - Organ failure - Shock SIRS Criteria: 2 or more of the following may indicate SIRS Temperature < 96.8F(36C) or > 101.0F (38C) Heart Rate > 90 bpm Respiratory Rate > 20 breaths/min or PaCO2 < 32 mmHg White Blood Cell Count > 12,000 or < 4,000 cells/mm3 or > 10% bands Please document in your progress notes and discharge summary in order to capture severity of illness and risk of mortality. Include clinical findings that support your diagnosis. FYI: Press F11 to launch patient chart. Place X here if this finding has no clinical significance, is not applicable or if you are not able to provide any additional documentation. GRETCHEND
[2016-07-12] MEDS: MONTELUKAST 10 MG TAB PO SCH (20:26)
[2016-07-12] MEDS: QUEtiapine 100 MG TAB PO SCH (20:26)
[2016-07-12] MEDS: MIRTAZAPINE 15 MG TAB PO SCH (20:26)
[2016-07-12] MEDS: FAMOTIDINE 20 MG TAB PO SCH (20:26)
[2016-07-12] MEDS: VANCOMYCIN 1,250 MG in SODIUM CHLORIDE 0.9% 250 ML IVPB SCH (20:44)
[2016-07-13] MEDS: HEPARIN SODIUM,PORCINE 5,000 UNIT/ML 1 ML VIAL SQ SCH ×3 (00:04→15:05)
[2016-07-13] MEDS: PIPERACILLIN-TAZOBACTAM 3.375 GM in DEXTROSE/WATER 1 50ML.BAG IVPB SCH ×3 (00:04→16:45)
[2016-07-13] MEDS: SODIUM CHLORIDE 0.9% 1,000 ML IV SCH (04:26)
[2016-07-13] MEDS: THEOPHYLLINE 24 HOUR 300 MG CAP.ER.24H PO SCH (07:49)
[2016-07-13] MEDS: LEVOTHYROXINE 75 MCG TAB PO SCH (07:49)
[2016-07-13] MEDS: FLUoxetine HCL 20 MG CAP PO SCH (07:50)
[2016-07-13] MEDS: METHYLPHENIDATE HCL 10 MG TAB PO SCH ×3 (07:54→20:38)
[2016-07-13] MEDS: clonazePAM 0.5 MG TAB PO SCH ×3 (07:54→20:38)
[2016-07-13 08:44] LABS: ALT 22 U/L (21-72); AST 15 U/L (17-59); Alkaline Phosphatase 65 U/L (38-126); Anion Gap 12 mmol/L; Blood Urea Nitrogen 29 mg/dL (9-20); Calcium 8.9 mg/dL (8.4-10.2); Carbon Dioxide 28 mmol/L (22-30); Chloride 102 mmol/L (98-107); Glucose 99 mg/dL (74-99); Non-African American GFR(MDRD) 59 (>60 ml/min/1.73 sqM); Potassium 4.7 mmol/L (3.5-5.1); Sodium 142 mmol/L (137-145); Total Bilirubin 0.4 mg/dL (0.2-1.3); Total Protein 6.7 g/dL (6.3-8.2)
[2016-07-13] MEDS: IPRATROPIUM-ALBUTEROL 3 ML NEB INHALATION PRN ×3 (09:19→19:42)
[2016-07-13] MEDS: SYMBICORT 160-4.5 MCG INHALER INHALATION SCH ×2 (09:19→19:42)
[2016-07-13] MEDS: TIOTROPIUM 18 MCG/PUFF INHALER INHALATION SCH (09:20)
--- NOTE | 2016-07-13 10:15 | PN ---
CHIEF COMPLAINT: Cellulitis of the left side of the neck. HISTORY OF PRESENT ILLNESS: This gentleman is doing well and his cellulitis is improving. Discomfort has gone down. CT of the neck that was done when he came was negative. PHYSICAL EXAM: The area of cellulitis is improved. It is less swollen and erythematous. It is still quite painful. IMPRESSION: Cellulitis left side of the neck. PLAN: Continue his antibiotics for another day before discharge.
[2016-07-13] MEDS: VANCOMYCIN 1,250 MG in SODIUM CHLORIDE 0.9% 250 ML IVPB SCH (13:23)
--- NOTE | 2016-07-13 15:33 | P.PN ---
Subjective 46-year-old male presented on the day of admission to the emergency room with a chief complaint of developing swelling redness and pain on the left side of the neck there were no open areas no occluding folliculitis. Patient was found have significant cellulitis extending from the mandible down to the left side of the neck laterally patient stated that this is never happened to him before. He denied any sore throat patient did have a CAT scan of the neck did show diffuse cellulitis extending into the subcutaneous areas without abscess collection. Chest x-ray suggest active lung infiltrate of pneumonia in the right middle lobe patient was started on IV Vanco and Zosyn treated for sepsis likely due to pneumonia right middle lobe with diffuse cellulitis. In the emergency room the temp was 100.4. The white count was 10.1 on admission there was significant swelling and erythema extending from just below the left ear to the front of the neck. Patient does have an old trach site which is well- healed. Patient was febrile in the emergency room. Patient reported that he had been feeling congested with an audible cough with generalized weakness decrease oral intake increased fatigue patient met sepsis criteria was treated per sepsis protocol which was initiated Over the course of the hospitalization the patient did make a significant improvement. Objective - Vital Signs Vital signs: Vital Signs Temp 97.8 F 07/13/16 07:00 Pulse 88 07/13/16 09:31 Resp 16 07/13/16 07:00 BP 107/68 07/13/16 07:00 Pulse Ox 91 L 07/13/16 07:00 Intake & Output 07/12/16 07/13/16 07/13/16 18:59 06:59 18:59 Intake Total 300 300 50 Output Total 900 900 Balance -600 300 -850 Intake: IV 300 300 50 Piperacillin-Tazobactam 3 50 50 50 .375 gm In Dextrose/Water 1 50ml.bag @ 12.5 mls/hr IVPB Q8HR [facility] Rx#: [id number] Vancomycin 1,250 mg In 250 250 Sodium Chloride 0.9% 250 ml @ 125 mls/hr IVPB Q12H [facility] Rx#:[id number] Output: Urine 900 900 Other: Voiding Method Toilet Toilet Toilet Urinal Urinal Urinal # Voids 1 - Exam Physical exam 46-year-old resting in bed states the swelling on the left side of the neck is improving. Pleasant cooperative appears in no acute distress Lungs adequate air movement bilaterally on room air Heart S1-S2 audible regular Abdomen soft nontender Extremities no edema - Labs CBC & Chem 7: 07/12/16 07:17 07/13/16 07:49 Labs: Abnormal Lab Results - Last 24 Hours (Table) 07/13/16 Range/Units 07:49 BUN 29 H (9-20) mg/dL Creatinine 1.29 H (0.66-1.25) mg/dL AST 15 L (17-59) U/L Assessment and Plan Plan: Impression Present on admission diffuse cellulitis extending into the subcutaneous area without abscess collection on the left side of the neck Present on admission sepsis leukocytosis febrile meet sepsis criteria sepsis protocol initiated started on IV Zosyn and vancomycin likely due to cellulitis diffuse on the left side of the neck with right middle lobe pneumonia Depressive disorder nonspecified COPD stable Chronic persistent asthma Mood disorder nonspecified Hypertension Severe COPD 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 Ramos Impression and the plan of care have been dictated as directed. Jessica Rogers nurse practitioner acting as a scribe for Dr. Ramos
[2016-07-13] MEDS: HYDROcodone/APAP 5-325MG 1 EACH TAB PO PRN ×2 (15:51→22:39)
[2016-07-13] MEDS: QUEtiapine 100 MG TAB PO SCH (20:35)
[2016-07-13] MEDS: MONTELUKAST 10 MG TAB PO SCH (20:35)
[2016-07-13] MEDS: FAMOTIDINE 20 MG TAB PO SCH (20:36)
[2016-07-13] MEDS: MIRTAZAPINE 15 MG TAB PO SCH (20:37)
[2016-07-13 22:29] VITALS: RESP 16
[2016-07-14] MEDS: PIPERACILLIN-TAZOBACTAM 3.375 GM in DEXTROSE/WATER 1 50ML.BAG IVPB SCH ×2 (00:14→08:23)
[2016-07-14] MEDS: HEPARIN SODIUM,PORCINE 5,000 UNIT/ML 1 ML VIAL SQ SCH ×2 (00:15→08:18)
[2016-07-14] MEDS: VANCOMYCIN 1,250 MG in SODIUM CHLORIDE 0.9% 250 ML IVPB SCH (04:24)
[2016-07-14] MEDS: SODIUM CHLORIDE 0.9% 1,000 ML IV SCH (04:24)
[2016-07-14] MEDS: IPRATROPIUM-ALBUTEROL 3 ML NEB INHALATION PRN ×2 (07:53→11:42)
[2016-07-14] MEDS: TIOTROPIUM 18 MCG/PUFF INHALER INHALATION SCH (07:53)
[2016-07-14] MEDS: SYMBICORT 160-4.5 MCG INHALER INHALATION SCH (07:53)
[2016-07-14] MEDS: LEVOTHYROXINE 75 MCG TAB PO SCH (08:18)
[2016-07-14] MEDS: FLUoxetine HCL 20 MG CAP PO SCH (08:19)
[2016-07-14] MEDS: THEOPHYLLINE 24 HOUR 300 MG CAP.ER.24H PO SCH (08:19)
[2016-07-14 08:20] VITALS: BP 112/73; TEMP 97.8
[2016-07-14] MEDS: clonazePAM 0.5 MG TAB PO SCH (08:23)
[2016-07-14] MEDS: METHYLPHENIDATE HCL 10 MG TAB PO SCH (08:23)
--- NOTE | 2016-07-14 10:46 | P.DS ---
Providers Date of admission: 07/10/16 02:32 Expected date of discharge: 07/14/16 Attending physician: Abhilash Ramos Primary care physician: Abhilash Ramos Hospital Course: 46-year-old male presented on the day of admission to the emergency room with a chief complaint of developing swelling redness and pain on the left side of the neck there were no open areas no occluding folliculitis. Patient was found have significant cellulitis extending from the mandible down to the left side of the neck laterally patient stated that this is never happened to him before. He denied any sore throat patient did have a CAT scan of the neck did show diffuse cellulitis extending into the subcutaneous areas without abscess collection. Chest x-ray suggest active lung infiltrate of pneumonia in the right middle lobe patient was started on IV Vanco and Zosyn treated for sepsis likely due to pneumonia right middle lobe with diffuse cellulitis involving the left side of the neck . In the emergency room the temp was 100.4. The white count was 10.1 on admission there was significant swelling and erythema extending from just below the left ear to the front of the left side of the neck. Patient does have an old trach site which is well-healed. Patient was febrile in the emergency room. Patient reported that he had been feeling congested with an audible cough with generalized weakness decrease oral intake increased fatigue patient met sepsis criteria was treated per sepsis protocol which was initiated patient was started on IV vancomycin and Zosyn Over the course of the hospitalization the patient did make a significant improvement. On the day of discharge there was a significant improvement in the cellulitis patient stated feeling less short of breath was appropriate to be discharged home Impression Present on admission diffuse cellulitis extending into the subcutaneous area without abscess collection on the left side of the neck Present on admission sepsis leukocytosis febrile meet sepsis criteria sepsis protocol initiated started on IV Zosyn and vancomycin likely due to cellulitis diffuse on the left side of the neck with right middle lobe pneumonia Depressive disorder nonspecified COPD stable Chronic persistent asthma Mood disorder nonspecified Hypertension Severe COPD 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 Ramos. Impression and the plan of care have been dictated as directed. Jessica Rogers nurse practitioner acting as a scribe for Dr. Ramos Plan - Discharge Summary New Discharge Prescriptions: Cephalexin [Keflex] 500 mg PO Q6HR #40 cap Discharge Medication List Albuterol Nebulized [Ventolin Nebulized] 2.5 mg INHALATION RT-Q4H PRN 08/06/15 [ History] FLUoxetine HCL [PROzac] 20 mg PO DAILY 08/06/15 [History] Methylphenidate HCl 20 mg PO TID 12/20/15 [History] QUEtiapine FUMARATE 100 mg PO HS 12/20/15 [History] clonazePAM [KlonoPIN] 0.5 mg PO TID 12/20/15 [History] Mirtazapine [Remeron] 15 mg PO HS tab 03/29/16 [Rx] Montelukast [Singulair] 10 mg PO HS #30 tab 03/29/16 [Rx] Albuterol Inhaler [Ventolin Hfa Inhaler] 2 puff INHALATION RT-QID PRN 07/10/16 [ History] Budesonide/Formoterol Fumarate [Symbicort 160-4.5 Mcg Inhaler] 2 puff INHALATION RT-BID 07/10/16 [History] Butalb/Asprin/Caff 50-325-40Mg [Fiorinal 50-325-40 MG] 1 - 2 cap PO Q4HR PRN [History] Ergocalciferol (Vitamin D2) [Vitamin D2] 50,000 unit PO Q7D 07/10/16 [History] Ipratropium-Albuterol Nebulize [Duoneb 0.5 mg-3 mg/3 ml Soln] 3 ml INHALATION RT -QID PRN 07/10/16 [History] Levothyroxine Sodium [Synthroid] 150 mcg PO DAILY 07/10/16 [History] Theophylline 24 Hour [[place]-24] 300 mg PO DAILY 07/10/16 [History] Tiotropium [place] [Spiriva] 1 cap INHALATION RT-DAILY 07/10/16 [History] traMADol HCL [Ultram] 50 mg PO Q6H PRN 07/10/16 [History] Cephalexin [Keflex] 500 mg PO Q6HR #40 cap 07/14/16 [Rx] Follow up Appointment(s)/Referral(s): Abhilash Ramos MD [Primary Care Provider] - 1-2 days Discharge Disposition: HOME SELF-CARE
[2016-07-14 11:53] VITALS: PULSE 78
--- NOTE | 2016-07-14 16:13 | PN ---
DATE OF SERVICE: 07/14/2016 CHIEF COMPLAINT: Cellulitis of the left side of the neck. HISTORY OF PRESENT ILLNESS: This gentleman is doing well and cellulitis is nearly gone. He feels pretty good and there is less pain. PHYSICAL EXAMINATION: This is very little redness, swelling and pain left ( ) left side of the neck. NECK: Supple. IMPRESSION: Cellulitis of the left side of the neck that is resolving. PLAN: Probably home today and this will be arranged by the nurse practitioner.
--- NOTE | 2016-07-14 16:13 | PN ---
CHIEF COMPLAINT: Cellulitis of the left side of the neck. HISTORY OF PRESENT ILLNESS: This gentleman is doing fairly well. He has had no new problems. His cellulitis is slowly improving. PHYSICAL EXAMINATION: Chest is clear. Cardiac exam is normal. The abdomen is soft, nontender. Left side of his neck is less swollen and red and less tender. IMPRESSION: Resolving cellulitis of the left side of the neck. PLAN: Probably home in the next day or 2.
[2016-07-15] MEDS ORDERED: VANCOMYCIN TROUGH DUE 1 EACH MISC MISCELLANE ONE (11:00)
== END 2016-07-14 14:10 | disposition home or self-care (01) | DRG 871 ==
LOC: EC 23:34 → 5MS5E 07-10 02:32
PROVIDERS: ADMIT Family Medicine; ATTEND Family Medicine
DX: A41.9 Sepsis, unspecified organism (principal); J18.9 Pneumonia, unspecified organism; L03.221 Cellulitis of neck; J44.0 Chronic obstructive pulmonary disease with (acute) lower respiratory infection; I10 Essential (primary) hypertension; F32.9 Major depressive disorder, single episode, unspecified; E03.9 Hypothyroidism, unspecified; F17.200 Nicotine dependence, unspecified, uncomplicated; F20.9 Schizophrenia, unspecified; F43.10 Post-traumatic stress disorder, unspecified; F90.9 Attention-deficit hyperactivity disorder, unspecified type; G89.29 Other chronic pain; J32.2 Chronic ethmoidal sinusitis; F41.9 Anxiety disorder, unspecified; M54.9 Dorsalgia, unspecified; J45.30 Mild persistent asthma, uncomplicated; Z79.899 Other long term (current) drug therapy; Z85.89 Personal history of malignant neoplasm of other organs and systems
CPT/HCPCS: 36415; 70491; 71020; 80053; 80202; 81001; 82533; 82550; 82553; 83605; 84484; 85025; 85610; 85730; 87040; 87086; 87502; 93005; 94640; 94760; 96361; 96365; 96375; 99285

== ENCOUNTER → 2016-07-31 | Outpatient (CLI) | payer MEDICARE, OTHER ==
--- NOTE | 2016-07-31 10:09 | US ---
EXAMINATION TYPE: US abdomen complete DATE OF EXAM: 07/31/2016 9:26 AM COMPARISON: No previous CLINICAL HISTORY: Abd Pain Generalized R10.84. Intermittent abdomen pain x 2 months EXAM MEASUREMENTS: Liver Length: 17.2 cm Gallbladder Wall: 0.2 cm CBD: 0.4 cm Spleen: 11.7 cm Right Kidney: 10.2 x 4.3 x 4.5 cm Left Kidney: 11.2 x 5.5 x 4.8 cm Grayscale, color Doppler imaging performed. Pancreas: visualized portions wnl, head and tail limited by overlying midline bowel gas Liver: measures in upper limits of normal at 17.2cm, slightly heterogeneous echotexture without any definite lesions seen at this time Gallbladder: 0.7cm echogenic shadowing mobile focus Evidence for sonographic Saavedra's sign: no CBD: wnl Spleen: visualized portions wnl, limited by rib shadowing and overlying bowel gas Right Kidney: visualized portions wnl, limited by rib shadowing and overlying bowel gas Left Kidney: 2.6 x 1.9 x 1.8cm hypoechoic area medial midpole, limited by rib shadowing and overlyin g bowel gas Upper IVC: wnl Abd Aorta: visualized portions wnl, limited by overlying midline bowel gas There is no ascites. IMPRESSION: Exam is somewhat limited. Consider fatty infiltration of the liver versus hepatocellular disease. Cholelithiasis. Indeterminate hypoechoic focus in the medullary fat lower pole left kidney. Consider CT or MRI of the abdomen with contrast for better evaluation, urology consult
== END | disposition home or self-care (01) ==
LOC: RADUSWWP 08:58
PROVIDERS: ATTEND Family Medicine
DX: K80.20 Calculus of gallbladder without cholecystitis without obstruction (principal)
CPT/HCPCS: 76700

== ENCOUNTER → 2017-04-20 | Outpatient (CLI) | payer MEDICARE, OTHER ==
--- NOTE | 2017-04-20 09:23 | US ---
EXAMINATION TYPE: US kidneys/renal and bladder DATE OF EXAM: 04/20/2017 COMPARISON: 07/31/2016 CLINICAL HISTORY: N18.3 Chronic Renal disease Stage 3. CKD stage 3 EXAM MEASUREMENTS: Right Kidney: 10.9 x 5.8 x 4.9 cm Left Kidney: 11.4 x 5.2 x 4.3 cm Right Kidney: visualized portions show no evidence of hydronephrosis or mass Left Kidney: hypoechoic area mid as on prior exam = 2.9 x 2.1 x 2.2cm Bladder: wnl Bilateral Jets seen: no There is no evidence for hydronephrosis at this point in time. No nephrolithiasis is seen. Urinary b ladder is unremarkable. IMPRESSION: 1. Again noted is hypoechoic area medial left kidney. Underlying mass is not excluded. CT correlation recommended.
== END | disposition home or self-care (01) ==
LOC: RADUSWWP 08:41
PROVIDERS: ATTEND Family Medicine
DX: N18.3 Chronic kidney disease, stage 3 (moderate) (principal)
CPT/HCPCS: 76770

== ENCOUNTER 2017-05-08 15:53 | Observation (INO) | payer MEDICARE, OTHER ==
[2017-05-08] MEDS ORDERED: methylPREDNISolone SOD SUCCI 125 MG/2 ML VIAL IV STA (16:09)
[2017-05-08] MEDS ORDERED: IPRATROPIUM-ALBUTEROL 3 ML NEB INHALATION STA (16:09)
[2017-05-08] MEDS ORDERED: SODIUM CHLORIDE 0.9% 1,000 ML IV STA ×2 (16:09)
[2017-05-08 16:23] LABS: Anisocytosis Slight; Basophils % (A) 1 %; Eosinophils # (A) 0.2 k/uL (0-0.7); Eosinophils % (A) 2 %; HGB 14.1 gm/dL (13.0-17.5); Hypochromasia Slight; Lymphocytes # (A) 0.5 k/uL (1.0-4.8); Lymphocytes % (A) 6 %; MCH 28.2 pg (25.0-35.0); MCHC 30.6 g/dL (31.0-37.0); MCV 92.4 fL (80.0-100.0); Mean Platelet Volume 10.5; Monocytes # (A) 0.7 k/uL (0-1.0); Monocytes % (A) 8 %; Neutrophils # (A) 6.7 k/uL (1.3-7.7); Neutrophils % (A) 82 %; Platelet Count 147 k/uL (150-450); RBC 4.98 m/uL (4.30-5.90); RDW 16.7 % (11.5-15.5); WBC 8.1 k/uL (3.8-10.6)
[2017-05-08 16:32] LABS: ALT 29 U/L (21-72); AST 22 U/L (17-59); Albumin 3.9 g/dL (3.5-5.0); Alkaline Phosphatase 77 U/L (38-126); Anion Gap 6 mmol/L; Blood Urea Nitrogen 14 mg/dL (9-20); Carbon Dioxide 25 mmol/L (22-30); Chloride 106 mmol/L (98-107); Glucose 118 mg/dL (74-99); Potassium 4.5 mmol/L (3.5-5.1); Sodium 137 mmol/L (137-145); Total Bilirubin 0.6 mg/dL (0.2-1.3); Total Protein 6.8 g/dL (6.3-8.2)
--- NOTE | 2017-05-08 16:40 | XR ---
EXAMINATION TYPE: XR chest 2V DATE OF EXAM: 05/08/2017 COMPARISON: 07/10/2016 INDICATION: Short of breath, COPD TECHNIQUE: Frontal and lateral views of the chest are obtained. FINDINGS: The heart size is normal. The pulmonary vasculature is normal. The lungs are clear. IMPRESSION: 1. No acute pulmonary process.
--- NOTE | 2017-05-08 18:26 | ED ---
General Adult HPI - General Chief complaint: Shortness of Breath Stated complaint: SOB Time Seen by Provider: 05/08/17 15:55 Source: patient, EMS, RN notes reviewed, old records reviewed Mode of arrival: EMS Limitations: no limitations - History of Present Illness Initial comments: Chief complaint history of present illness this is a 47-year-old male called EMS because of nausea vomiting diarrhea for 4 days and COPD exacerbation. Patient denies fever at home. Complains of chest discomfort with frequent coughing. - Related Data Home Medications Medication Instructions Recorded Confirmed Albuterol Nebulized [Ventolin 2.5 mg INHALATION RT-Q4H PRN 08/06/15 05/08/17 Nebulized] FLUoxetine HCL [PROzac] 20 mg PO DAILY 08/06/15 05/08/17 Methylphenidate HCl 20 mg PO TID 12/20/15 05/08/17 QUEtiapine FUMARATE 100 mg PO HS 12/20/15 05/08/17 clonazePAM [KlonoPIN] 0.5 mg PO TID 12/20/15 05/08/17 Albuterol Inhaler [Ventolin Hfa 2 puff INHALATION RT-QID PRN 07/10/16 05/08/17 Inhaler] Butalb/Asprin/Caff 50-325-40Mg 1 - 2 cap PO Q4HR PRN 07/10/16 05/08/17 [Fiorinal 50-325-40 MG] traMADol HCL [Ultram] 50 mg PO Q6H PRN 07/10/16 05/08/17 Levothyroxine Sodium [Synthroid] 100 mcg PO DAILY 05/08/17 05/08/17 Previous Rx's Medication Instructions Recorded Mirtazapine [Remeron] 15 mg PO HS tab 03/29/16 Montelukast [Singulair] 10 mg PO HS #30 tab 03/29/16 Allergies Allergy/AdvReac Type Severity Reaction Status Date / Time No Known Allergies Allergy Verified 05/08/17 16:33 Review of Systems ROS Statement: Those systems with pertinent positive or pertinent negative responses have been documented in the HPI. Review of systems no headache or visual acuity changes complains of cough and difficulty breathing secondary to COPD exacerbation of COPD. Deep breathing and coughing increases anterior chest wall discomfort. He's had nausea vomiting and diarrhea diarrhea for 4 days. All systems reviewed. Past medical problems significant for COPD, chronic back pain. The patient has had neck surgery, appendectomy. The patient's family history: Cancer. He was advised FAMILY doctor about having a colonoscopy. Patient denies ALLERGIES she does smoke. Strongly encouraged to stop smoking denies alcohol use. ROS Other: All systems not noted in ROS Statement are negative. Past Medical History Past Medical History: Asthma, COPD Additional Past Medical History / Comment(s): BACK PAIN, THROAT TUMOR REMOVED- CANCER, chemo and radiation History of Any Multi-Drug Resistant Organisms: None Reported Past Surgical History: Appendectomy Additional Past Surgical History / Comment(s): NECK SURGERY, TRACHEOTOMY, right knee surgery as a child Past Anesthesia/Blood Transfusion Reactions: No Reported Reaction Past Psychological History: ADD/ADHD, Anxiety, Bipolar, Depression, PTSD Smoking Status: Current every day smoker Past Alcohol Use History: None Reported Past Drug Use History: Marijuana - Past Family History Mother Additional Family Medical History / Comment(s): mom of colon cancer General Exam - General Exam Comments Initial Comments: General: The patient is awake and alert, pleasant the nausea vomiting diarrhea and shortness of breath getting worse over the past 4 days. Vital signs shows temperature 98.8 pulse 80 respiratory rate 20 pulse ox 95% on 2 L of O2.. Blood pressure 141/75 Eye: Pupils are equal, round and reactive to light, extra-ocular movements are intact ; there is normal conjunctiva bilaterally. No signs of icterus. Ears, nose, mouth and throat: There are moist mucous membranes and no oral lesions. Neck: The neck is supple, there is no tenderness . Cardiovascular: There is a regular rate and rhythm. No murmur, rub or gallop is appreciated. Respiratory: Decreased air entry bilaterally. No rubs rales or significant wheezing at this time. Gastrointestinal: Soft, non-distended, non-tender abdomen without masses or organomegaly noted. There is no rebound or guarding present. No CVA tenderness. Active bowel sounds Back: There is no tenderness to palpation in the midline. There is no obvious deformity. No rashes noted. Musculoskeletal: Normal ROM, no tenderness, There is no pedal edema. There is no calf tenderness or swelling. Sensation intact. Pulses equal bilaterally 2+. Neurological: CN II-XII intact, There are no obvious motor or sensory deficits. Coordination appears grossly intact. Speech is normal. No focal or lateralizing findings Skin: Skin is warm and dry and no rashes or lesions are noted. Psychiatric: Cooperative, appropriate mood & affect, normal judgment. Limitations: no limitations Course Vital Signs 05/08/17 05/08/17 05/08/17 15:54 16:11 16:48 Temperature 98.8 F Pulse Rate 88 88 Respiratory 20 20 Rate Blood Pressure 141/75 O2 Sat by Pulse Oximetry 05/08/17 05/08/17 17:05 17:15 Temperature Pulse Rate 90 96 Respiratory 20 Rate Blood Pressure 108/89 O2 Sat by Pulse 95 Oximetry Medical Decision Making - Medical Decision Making Medical decision making; patient's here because of nausea vomiting diarrhea and exacerbation of COPD. Labs show white count of 8 hemoglobin 14 hematocrit 46. BUN 14 creatinine 1.2 GFR greater than 60. His labs from 5 days ago showed an elevated BUN 30 creatinine 1.5 and GFR of 50. His kidney function has improved since then. Chest x-ray was done and reviewed by radiologist his findings are the heart size is normal. The pulmonary vasculature is normal. Lungs are clear. Impression; no acute pulmonary process. As read by Dr. Worthington Patient has had 2 studies, ultrasounds of the abdomen. Both of which mention hypoechoic area within the left kidney. Both suggested further investigation as in caT scan with contrast or MRI to rule out renal mass. Reexamination finds patient still some difficulty breathing. Only slight improvement after updraft and IV site Medrol. The case discussed with Dr. Neff. - Lab Data Result diagrams: 05/08/17 16:00 05/08/17 16:00 Lab Results 05/08/17 05/08/17 Range/Units 16:00 16:00 WBC 8.1 (3.8-10.6) k/uL RBC 4.98 (4.30-5.90) m/uL Hgb 14.1 (13.0-17.5) gm/dL Hct 46.0 (39.0-53.0) % MCV 92.4 (80.0-100.0) fL MCH 28.2 (25.0-35.0) pg MCHC 30.6 L (31.0-37.0) g/dL RDW 16.7 H (11.5-15.5) % Plt Count 147 L (150-450) k/uL Neutrophils % 82 % Lymphocytes % 6 % Monocytes % 8 % Eosinophils % 2 % Basophils % 1 % Neutrophils # 6.7 (1.3-7.7) k/uL Lymphocytes # 0.5 L (1.0-4.8) k/uL Monocytes # 0.7 (0-1.0) k/uL Eosinophils # 0.2 (0-0.7) k/uL Basophils # 0.0 (0-0.2) k/uL Hypochromasia Slight Anisocytosis Slight Sodium 137 (137-145) mmol/L Potassium 4.5 (3.5-5.1) mmol/L Chloride 106 (98-107) mmol/L Carbon Dioxide 25 (22-30) mmol/L Anion Gap 6 mmol/L BUN 14 (9-20) mg/dL Creatinine 1.20 (0.66-1.25) mg/dL Est GFR (MDRD) Af Amer >60 (>60 ml/min/1.73 sqM) Est GFR (MDRD) Non-Af >60 (>60 ml/min/1.73 sqM) Glucose 118 H (74-99) mg/dL Calcium 9.0 (8.4-10.2) mg/dL Total Bilirubin 0.6 (0.2-1.3) mg/dL AST 22 (17-59) U/L ALT 29 (21-72) U/L Alkaline Phosphatase 77 (38-126) U/L Total Protein 6.8 (6.3-8.2) g/dL Albumin 3.9 (3.5-5.0) g/dL Disposition Clinical Impression: Acute exacerbation of chronic obstructive pulmonary disease, Gastroenteritis Disposition: ADMITTED IP TO THIS [facility] Condition: Fair Referrals: Lencho Neff MD [Primary Care Provider] - 1-2 days
[2017-05-08] MEDS ORDERED: NALOXONE 0.4 MG/ML 1 ML VIAL IV PRN (18:33)
[2017-05-08] MEDS ORDERED: ONDANSETRON 4 MG/2 ML VIAL IVP PRN (18:33)
[2017-05-08] MEDS ORDERED: traMADol 50 MG TAB PO PRN (18:37)
[2017-05-08] MEDS ORDERED: ALBUTEROL INHALER 60 PUFF/8 GM INHALER INHALATION PRN (18:37)
[2017-05-08] MEDS ORDERED: LOPERAMIDE 2 MG CAP PO ONE (18:45)
[2017-05-08] MEDS ORDERED: PANTOPRAZOLE 40 MG/10 ML VIAL IV STA (18:49)
[2017-05-08] MEDS: SODIUM CHLORIDE 0.9% 1,000 ML IV SCH (19:44)
[2017-05-08] MEDS: MIRTAZAPINE 15 MG TAB PO SCH (22:15)
[2017-05-08] MEDS: clonazePAM 0.5 MG TAB PO SCH (22:16)
[2017-05-08] MEDS: MONTELUKAST 10 MG TAB PO SCH (22:16)
[2017-05-08] MEDS: METHYLPHENIDATE HCL 10 MG TAB PO SCH (22:16)
[2017-05-08] MEDS: QUEtiapine 100 MG TAB PO SCH (22:16)
[2017-05-09] MEDS: methylPREDNISolone SOD SUCCI 40 MG/ML 1 ML VIAL IV SCH ×4 (00:44→23:37)
[2017-05-09] MEDS: ALBUTEROL NEBULIZED 2.5 MG/3 ML INHALATION PRN ×5 (01:28→23:16)
[2017-05-09 04:18] LABS: Hepatitis A Antibody IgM Non-Reactive (Non-Reactive); Hepatitis B Core IgM Non-Reactive (Non-Reactive)
[2017-05-09] MEDS: LEVOTHYROXINE 100 MCG TAB PO SCH (06:48)
[2017-05-09] MEDS: SODIUM CHLORIDE 0.9% 1,000 ML IV SCH ×3 (06:52→18:29)
[2017-05-09 08:43] LABS: Basophils % (A) 0 %; Eosinophils % (A) 0 %; HCT 42.4 % (39.0-53.0); Hypochromasia Slight; Lymphocytes # (A) 0.4 k/uL (1.0-4.8); Lymphocytes % (A) 6 %; MCH 28.3 pg (25.0-35.0); MCHC 30.6 g/dL (31.0-37.0); MCV 92.5 fL (80.0-100.0); Mean Platelet Volume 9.3; Monocytes # (A) 0.2 k/uL (0-1.0); Monocytes % (A) 4 %; Neutrophils # (A) 5.8 k/uL (1.3-7.7); Neutrophils % (A) 90 %; Platelet Count 135 k/uL (150-450); RBC 4.58 m/uL (4.30-5.90); RDW 14.9 % (11.5-15.5); WBC 6.5 k/uL (3.8-10.6)
[2017-05-09] MEDS: clonazePAM 0.5 MG TAB PO SCH ×3 (08:59→18:27)
[2017-05-09] MEDS: FLUoxetine HCL 20 MG CAP PO SCH (08:59)
[2017-05-09] MEDS: METHYLPHENIDATE HCL 10 MG TAB PO SCH ×3 (08:59→18:27)
[2017-05-09] MEDS: PANTOPRAZOLE 40 MG/10 ML VIAL IV SCH (08:59)
[2017-05-09 09:12] LABS: ALT 37 U/L (21-72); AST 23 U/L (17-59); Albumin 3.6 g/dL (3.5-5.0); Alkaline Phosphatase 79 U/L (38-126); Anion Gap 8 mmol/L; Blood Urea Nitrogen 17 mg/dL (9-20); Calcium 8.8 mg/dL (8.4-10.2); Carbon Dioxide 23 mmol/L (22-30); Chloride 108 mmol/L (98-107); Glucose 139 mg/dL (74-99); Sodium 139 mmol/L (137-145); Total Bilirubin 0.3 mg/dL (0.2-1.3); Total Protein 6.4 g/dL (6.3-8.2)
[2017-05-09 09:43] LABS: Potassium 5.1 mmol/L (3.5-5.1)
[2017-05-09] MEDS: QUEtiapine 100 MG TAB PO SCH (20:29)
[2017-05-09] MEDS: MONTELUKAST 10 MG TAB PO SCH (20:29)
[2017-05-09] MEDS: MIRTAZAPINE 15 MG TAB PO SCH (20:29)
[2017-05-10] MEDS: SODIUM CHLORIDE 0.9% 1,000 ML IV SCH ×2 (02:17→08:44)
[2017-05-10] MEDS: ALBUTEROL NEBULIZED 2.5 MG/3 ML INHALATION PRN ×3 (07:37→15:41)
[2017-05-10] MEDS: FLUoxetine HCL 20 MG CAP PO SCH (08:43)
[2017-05-10] MEDS: PANTOPRAZOLE 40 MG/10 ML VIAL IV SCH (08:43)
[2017-05-10] MEDS: METHYLPHENIDATE HCL 10 MG TAB PO SCH ×3 (08:43→16:32)
[2017-05-10] MEDS: methylPREDNISolone SOD SUCCI 40 MG/ML 1 ML VIAL IV SCH ×2 (08:43→16:37)
[2017-05-10] MEDS: clonazePAM 0.5 MG TAB PO SCH ×3 (08:44→16:32)
[2017-05-10] MEDS: LEVOTHYROXINE 100 MCG TAB PO SCH (08:44)
[2017-05-10 10:38] VITALS: RESP 18
--- NOTE | 2017-05-10 14:21 | HP ---
HISTORY AND PHYSICAL DATE OF SERVICE: 05/09/2017 CHIEF COMPLAINT: This is a 47-year-old white male who was admitted with acute COPD exacerbation, shortness of breath. He has had IV steroids, IV antibiotics. He also had some diarrhea for 4 days and was admitted for gastroenteritis, dehydration. He has had no diarrhea since he has been admitted through the emergency room, up on the floor for the last 6-12 hours. He has chest discomfort, frequent cough and he gets migraine he states from the beeping on the IV machine at this time. HOME MEDICINES: Include: 1. Ventolin. 2. Prozac. 3. Quetiapine. 4. Klonopin. 5. Tramadol. 6. Levothyroxine. ALLERGIES: Negative. REVIEW OF SYSTEMS: Fourteen point review of systems negative except for mentioned in HPI. FAMILY HISTORY: Mother of colon cancer. PHYSICAL EXAM: Pulse is 80s, rest, temp 98, respiratory rate 20-25, O2 95% on 2L, blood pressure 141/75. Pupils equal, round and reactive to light and accommodation. PSYCH: Appears aggravated, anxious, rapid speech. CARDIOVASCULAR: S1, S2, tachy. Lungs reveal decreased breath sounds. Scattered wheeze. No rhonchi. GI: Soft, nontender. No mass, organomegaly. No hematemesis. Negative Homans'. BACK: No CVA tenderness. NEUROLOGIC: Muscle range of motion is decent. Cranial nerves are intact. Skin is warm, dry, intact. PSYCH: Fair mood and affect. ASSESSMENT: 1. Gastroenteritis. 2. Dehydration. 3. Chronic obstructive pulmonary disease exacerbation. 4. Acute on chronic renal insufficiency. 5. Chronic renal disease stage 3. PLAN: Rehydration, IV steroids, updraft treatments. Please see further orders. MMODL / IJN: [id number] /
[2017-05-10 15:27] VITALS: BP 134/88; TEMP 98.7
[2017-05-10] MEDS ORDERED: INFLUENZA VACCINE (6 MOS+) 60 MCG/0.5 ML SYRINGE IM ONE (15:27)
[2017-05-10 15:44] VITALS: PULSE 80
[2017-05-11] MEDS ORDERED: PANTOPRAZOLE 40 MG TABLET PO SCH (09:00)
--- NOTE | 2017-06-10 15:59 | DS ---
DISCHARGE SUMMARY DATE OF ADMISSION: 05/08/2017. DATE OF DISCHARGE: 05/10/2017. DISCHARGE MEDICATIONS: Ventolin nebulizer q.4 hours, Prozac 20 mg daily, Quetiapine 100 mg daily 2. Ritalin 20 mg t.i.d., Klonopin 0.5 mg t.i.d. singular 10 mg daily, Remeron 15 mg daily, Fiorinal 1 every 4 hours p.r.n., tramadol 50 mg q.6 hours, Synthroid 100 mcg daily. DISCHARGE DIAGNOSES: 1. Gastroenteritis. 2. Dehydration. 3. Chronic obstructive pulmonary disease. 4. Acute on chronic renal insufficiency. 5. Chronic kidney disease stage 3. The patient was admitted, was given rehydration, IV steroids, updraft treatments for COPD exacerbation. The patient improved from medical standpoint over the next few days at which time patient was sent home in stable condition to follow up as an outpatient. KYLIE / NADYA: [id number] /
== END 2017-05-10 17:28 ==
LOC: EC 15:53 → 4MS4W 18:33
PROVIDERS: ADMIT Family Medicine; ATTEND Family Medicine
DX: K52.9 Noninfective gastroenteritis and colitis, unspecified (principal); E86.0 Dehydration; J44.1 Chronic obstructive pulmonary disease with (acute) exacerbation; N18.3 Chronic kidney disease, stage 3 (moderate); Z79.899 Other long term (current) drug therapy; F17.200 Nicotine dependence, unspecified, uncomplicated; G89.29 Other chronic pain; M54.9 Dorsalgia, unspecified; F90.9 Attention-deficit hyperactivity disorder, unspecified type; F31.9 Bipolar disorder, unspecified; F43.10 Post-traumatic stress disorder, unspecified; F41.9 Anxiety disorder, unspecified; Z80.0 Family history of malignant neoplasm of digestive organs; Z92.21 Personal history of antineoplastic chemotherapy; Z92.3 Personal history of irradiation; Z85.89 Personal history of malignant neoplasm of other organs and systems; G43.909 Migraine, unspecified, not intractable, without status migrainosus; Z23 Encounter for immunization
CPT/HCPCS: 99285; 96374; 96361 ×5; 96375 ×2; 96376 ×2; 36415; 94640 ×5; 80053 ×2; 80074; 85025 ×2; 71020; 90686; G0378 ×3; G0008; J2920 ×2; J2930; C9113 ×3

== ENCOUNTER → 2017-07-07 | Outpatient (CLI) | payer MEDICARE, OTHER ==
--- NOTE | 2017-07-09 09:31 | PE ---
EXAMINATION TYPE: PET CT fusion skull to thigh DATE OF EXAM: 07/07/2017 COMPARISON: CT abdomen May 02, 2017. CT neck July 10, 2016. HISTORY: Throat cancer treated surgically 2010 and completed chemotherapy and radiation treatment 3 y ears ago progress study. TECHNIQUE: Following the intravenous administration of 14.107 mCi of F-18 FDG, whole body images are performed from the skull base to the midthigh. Images are reviewed on the computer in the coronal, axial, and sagittal planes. Reconstructed rotating images are created on independent workstation and reviewed on the computer. A noncontrast CT is performed in conjunction with the PET scan. Dedicate d PET/CT imaging of the neck is also performed. SCAN: Subsequent Scan FINDINGS: SKULL BASE AND NECK: No suspicious hypermetabolic uptake is seen. CHEST, MEDIASTINUM, AND HILAR REGION: No suspicious hypermetabolic uptake is seen. ABDOMEN AND PELVIS: No suspicious hypermetabolic uptake is seen. OSSEOUS STRUCTURES: No suspicious hypermetabolic uptake is seen. OTHER CT: Mild to moderate underlying emphysematous change is present. There is redemonstration of left-sided extrarenal pelvis. There is redemonstration of posterior gastric wall diverticulum with air-fluid level axial image 147. Some facet arthropathy lower lumbar levels is redemonstrated. IMPRESSION: No suspicious hypermetabolic uptake identified to suggest recurrent neoplasm.
== END | disposition home or self-care (01) ==
LOC: RADPETMAIN 10:59
PROVIDERS: ATTEND Otolaryngology
DX: C32.0 Malignant neoplasm of glottis (principal)
CPT/HCPCS: 78815; A9552

== ENCOUNTER → 2017-07-17 | Outpatient (CLI) | payer MEDICARE, OTHER | END | disposition home or self-care (01) | LOC: PTMAIN 09:06 | PROVIDERS: ATTEND Otolaryngology | DX: J37.0 Chronic laryngitis (principal); C32.0 Malignant neoplasm of glottis | CPT/HCPCS: 31579 ==

== ENCOUNTER 2017-09-17 21:12 | Emergency (ER) | payer MEDICARE, OTHER ==
[2017-09-17 21:43] VITALS: TEMP 98.5
--- NOTE | 2017-09-17 22:16 | XR ---
EXAMINATION TYPE: XR chest 2V DATE OF EXAM: 09/17/2017 COMPARISON: 05/08/2017 HISTORY: Difficulty breathing TECHNIQUE: Frontal and lateral views of the chest are obtained. FINDINGS: Heart and mediastinum are normal. Lungs are clear. There is no heart failure. Bony thorax is intact. IMPRESSION: Normal chest. There is clearing of some reticular interstitial density in the lower lobe compared to old exam.
[2017-09-17] MEDS ORDERED: methylPREDNISolone SOD SUCCI 125 MG/2 ML VIAL IV STA (23:00)
[2017-09-17] MEDS ORDERED: ALBUTEROL NEBULIZED 2.5 MG/3 ML INHALATION STA (23:00)
--- NOTE | 2017-09-17 23:04 | ED ---
SOB HPI - General Chief Complaint: Shortness of Breath Stated Complaint: EMILIANA/Dizzy Time Seen by Provider: 09/17/17 22:39 Source: patient Mode of arrival: ambulatory Limitations: no limitations - History of Present Illness Initial Comments: 47-year-old male patient with a past medical history significant for laryngeal carcinoma, asthma, COPD, current some day smoker, presents to the emergency department today for complaints of shortness of breath. Patient states that starting yesterday he had increase in trouble breathing. Patient states he has also had chest pressure and feels like there is a weight on his chest. He states that he has done four DuoNeb breathing treatments today without relief. States he does use his inhaler multiple times. Patient states he is feeling lightheaded and dizzy with this. States that he is coughing but does not have any sputum production. He denies any nausea, vomiting, sweats, fever, or chills. Patient denies any recent rash, abdominal pain, nausea, vomiting, back pain, numbness, tingling, weakness, hematuria, dysuria, urinary urgency, urinary frequency, headache, visual changes, or any other complaints. - Related Data Home Medications Medication Instructions Recorded Confirmed Albuterol Nebulized [Ventolin 2.5 mg INHALATION RT-Q4H PRN 08/06/15 09/17/17 Nebulized] FLUoxetine HCL [PROzac] 20 mg PO DAILY 08/06/15 09/17/17 Methylphenidate HCl 20 mg PO TID 12/20/15 09/17/17 QUEtiapine FUMARATE 100 mg PO HS 12/20/15 09/17/17 clonazePAM [KlonoPIN] 0.5 mg PO TID 12/20/15 09/17/17 Albuterol Inhaler [Ventolin Hfa 2 puff INHALATION RT-QID PRN 07/10/16 09/17/17 Inhaler] Butalb/Asprin/Caff 50-325-40Mg 1 - 2 cap PO Q4HR PRN 07/10/16 09/17/17 [Fiorinal 50-325-40 MG] Levothyroxine Sodium [Synthroid] 100 mcg PO DAILY 05/08/17 09/17/17 Previous Rx's Medication Instructions Recorded Mirtazapine [Remeron] 15 mg PO HS tab 03/29/16 Montelukast [Singulair] 10 mg PO HS #30 tab 03/29/16 Azithromycin [Zithromax Z-pack] 0 mg PO DIRECTED #6 tab 09/18/17 predniSONE 50 mg PO DAILY #5 tablet 09/18/17 Allergies Allergy/AdvReac Type Severity Reaction Status Date / Time No Known Allergies Allergy Verified 09/17/17 22:51 Review of Systems ROS Statement: Those systems with pertinent positive or pertinent negative responses have been documented in the HPI. ROS Other: All systems not noted in ROS Statement are negative. Past Medical History Past Medical History: Asthma, COPD Additional Past Medical History / Comment(s): BACK PAIN, THROAT TUMOR REMOVED- CANCER, chemo and radiation, History of Any Multi-Drug Resistant Organisms: None Reported Past Surgical History: Appendectomy Additional Past Surgical History / Comment(s): NECK SURGERY, TRACHEOTOMY, right knee surgery as a child, Past Anesthesia/Blood Transfusion Reactions: No Reported Reaction Past Psychological History: ADD/ADHD, Anxiety, Bipolar, Depression, PTSD Smoking Status: Current some day smoker Past Alcohol Use History: None Reported Past Drug Use History: Marijuana - Past Family History Mother Additional Family Medical History / Comment(s): mom of colon cancer General Exam Limitations: no limitations General appearance: alert, in no apparent distress, other (This is a well- developed, well-nourished adult male patient in no acute distress. Vital signs upon presentation are temperature 98.5F, pulse 92, respirations 28, blood pressure 127/78, pulse ox 94% on room air.) Eye exam: Present: normal appearance, PERRL, EOMI. Absent: scleral icterus, conjunctival injection, periorbital swelling ENT exam: Present: normal exam, normal oropharynx, mucous membranes moist Respiratory exam: Present: respiratory distress (Mild), wheezes (Faint expiratory wheezing noted throughout all lung knight), decreased breath sounds. Absent: normal lung sounds bilaterally, rales, rhonchi, stridor Cardiovascular Exam: Present: regular rate, normal rhythm, normal heart sounds. Absent: systolic murmur, diastolic murmur, rubs, gallop, clicks GI/Abdominal exam: Present: soft, normal bowel sounds. Absent: distended, tenderness, guarding, rebound, rigid Neurological exam: Present: alert, oriented X3, CN II-XII intact Psychiatric exam: Present: normal affect, normal mood Skin exam: Present: warm, dry, intact, normal color. Absent: rash Course Vital Signs 09/17/17 09/17/17 09/18/17 21:39 23:50 00:09 Temperature 98.5 F Pulse Rate 92 79 80 Respiratory 24 Rate Blood Pressure 127/78 118/89 O2 Sat by Pulse 94 L 96 Oximetry 09/18/17 09/18/17 09/18/17 00:17 01:17 01:30 Temperature Pulse Rate 82 86 85 Respiratory Rate Blood Pressure O2 Sat by Pulse Oximetry 09/18/17 01:43 Temperature Pulse Rate 91 Respiratory 20 Rate Blood Pressure 139/85 O2 Sat by Pulse 94 L Oximetry Medical Decision Making - Medical Decision Making 47-year-old male patient presents to the emergency department today for evaluation of shortness of breath and chest tightness. Physical examination did reveal diffuse expiratory wheezing to all posterior lung knight with decreased air movement. Chest x-ray showed no acute cardiopulmonary process. EKG showed normal sinus rhythm. Patient did receive 2 breathing treatments here in the emergency department as well as IV steroids. He is feeling better after this. I did discuss with patient that symptoms are most likely related to an exacerbation of his COPD. He'll be discharged home with a course of steroids and azithromycin. He is instructed to follow-up with his primary care physician for recheck in 1-2 days. Return parameters discussed in detail. He verbalizes understanding and agrees with this plan. - Lab Data Result diagrams: 09/17/17 23:40 09/17/17 23:40 Lab Results 09/17/17 09/17/17 09/17/17 Range/Units 23:40 23:40 23:40 WBC 6.9 (3.8-10.6) k/uL RBC 5.18 (4.30-5.90) m/uL Hgb 14.6 (13.0-17.5) gm/dL Hct 45.1 (39.0-53.0) % MCV 87.0 (80.0-100.0) fL MCH 28.2 (25.0-35.0) pg MCHC 32.3 (31.0-37.0) g/dL RDW 14.4 (11.5-15.5) % Plt Count 128 L (150-450) k/uL Neutrophils % 74 % Lymphocytes % 8 % Monocytes % 8 % Eosinophils % 9 % Basophils % 0 % Neutrophils # 5.1 (1.3-7.7) k/uL Lymphocytes # 0.5 L (1.0-4.8) k/uL Monocytes # 0.6 (0-1.0) k/uL Eosinophils # 0.6 (0-0.7) k/uL Basophils # 0.0 (0-0.2) k/uL PT (9.0-12.0) sec INR (<1.2) APTT (22.0-30.0) sec Sodium 141 (137-145) mmol/L Potassium 4.6 (3.5-5.1) mmol/L Chloride 103 (98-107) mmol/L Carbon Dioxide 26 (22-30) mmol/L Anion Gap 12 mmol/L BUN 18 (9-20) mg/dL Creatinine 1.20 (0.66-1.25) mg/dL Est GFR (CKD-EPI)AfAm 82 (>60 ml/min/1.73 sqM) Est GFR (CKD-EPI)NonAf 71 (>60 ml/min/1.73 sqM) Glucose 94 (74-99) mg/dL Calcium 9.5 (8.4-10.2) mg/dL Magnesium 1.8 (1.6-2.3) mg/dL Total Bilirubin 0.6 (0.2-1.3) mg/dL AST 22 (17-59) U/L ALT 20 L (21-72) U/L Alkaline Phosphatase 79 (38-126) U/L Total Creatine Kinase 126 (55-170) U/L CK-MB (CK-2) 3.0 H* (0.0-2.4) ng/mL CK-MB (CK-2) Rel Index 2.4 Troponin I <0.012 (0.000-0.034) ng/mL Total Protein 7.3 (6.3-8.2) g/dL Albumin 4.5 (3.5-5.0) g/dL 09/17/17 Range/Units 23:40 WBC (3.8-10.6) k/uL RBC (4.30-5.90) m/uL Hgb (13.0-17.5) gm/dL Hct (39.0-53.0) % MCV (80.0-100.0) fL MCH (25.0-35.0) pg MCHC (31.0-37.0) g/dL RDW (11.5-15.5) % Plt Count (150-450) k/uL Neutrophils % % Lymphocytes % % Monocytes % % Eosinophils % % Basophils % % Neutrophils # (1.3-7.7) k/uL Lymphocytes # (1.0-4.8) k/uL Monocytes # (0-1.0) k/uL Eosinophils # (0-0.7) k/uL Basophils # (0-0.2) k/uL PT 9.7 (9.0-12.0) sec INR 1.0 (<1.2) APTT 23.9 (22.0-30.0) sec Sodium (137-145) mmol/L Potassium (3.5-5.1) mmol/L Chloride (98-107) mmol/L Carbon Dioxide (22-30) mmol/L Anion Gap mmol/L BUN (9-20) mg/dL Creatinine (0.66-1.25) mg/dL Est GFR (CKD-EPI)AfAm (>60 ml/min/1.73 sqM) Est GFR (CKD-EPI)NonAf (>60 ml/min/1.73 sqM) Glucose (74-99) mg/dL Calcium (8.4-10.2) mg/dL Magnesium (1.6-2.3) mg/dL Total Bilirubin (0.2-1.3) mg/dL AST (17-59) U/L ALT (21-72) U/L Alkaline Phosphatase (38-126) U/L Total Creatine Kinase (55-170) U/L CK-MB (CK-2) (0.0-2.4) ng/mL CK-MB (CK-2) Rel Index Troponin I (0.000-0.034) ng/mL Total Protein (6.3-8.2) g/dL Albumin (3.5-5.0) g/dL - EKG Data -: EKG Interpreted by [facility] EKG Comments: EKG obtained at 2146 shows sinus rhythm with fusion complexes, incomplete right bundle branch block, ventricular rate is 93, WA interval 134, QR pentecostalism 106 , QT 366, QTc 455. - Radiology Data Radiology results: report reviewed, image reviewed Two-view x-ray of the chest shows a heart and mediastinum are normal. Lungs are clear. There is no heart failure. Bony thorax is intact. Impression by Dr. Richardson shows normal chest. There is clearing of some reticular interstitial density in the lower lobe compared to old exam. Disposition Clinical Impression: COPD exacerbation Disposition: HOME SELF-CARE Condition: Good Instructions: COPD (Chronic Obstructive Pulmonary Disease) (ED) Additional Instructions: Take medications as directed. Follow-up with her primary care physician in one to 2 days for recheck. Return here immediately for any new, worsening, or concerning symptoms. Prescriptions: Azithromycin [Zithromax Z-pack] 0 mg PO DIRECTED #6 tab predniSONE 50 mg PO DAILY #5 tablet Is patient prescribed a controlled substance at d/c from ED?: No Referrals: Lencho Neff MD [Primary Care Provider] - 1-2 days Time of Disposition: 01:09
[2017-09-17 23:49] LABS: Basophils % (A) 0 %; Eosinophils # (A) 0.6 k/uL (0-0.7); Eosinophils % (A) 9 %; HCT 45.1 % (39.0-53.0); HGB 14.6 gm/dL (13.0-17.5); Lymphocytes # (A) 0.5 k/uL (1.0-4.8); Lymphocytes % (A) 8 %; MCH 28.2 pg (25.0-35.0); MCHC 32.3 g/dL (31.0-37.0); Mean Platelet Volume 9.9; Monocytes # (A) 0.6 k/uL (0-1.0); Monocytes % (A) 8 %; Neutrophils # (A) 5.1 k/uL (1.3-7.7); Neutrophils % (A) 74 %; Platelet Count 128 k/uL (150-450); RBC 5.18 m/uL (4.30-5.90); RDW 14.4 % (11.5-15.5); WBC 6.9 k/uL (3.8-10.6)
[2017-09-18] LABS: Albumin 4.5 g/dL (3.5-5.0); Calcium 9.5 mg/dL (8.4-10.2); Magnesium 1.8 mg/dL (1.6-2.3); Potassium 4.6 mmol/L (3.5-5.1); Total Bilirubin 0.6 mg/dL (0.2-1.3); Total Protein 7.3 g/dL (6.3-8.2)
[2017-09-18 00:02] LABS: Partial Thromboplastin Time 23.9 sec (22.0-30.0); Prothrombin Time 9.7 sec (9.0-12.0)
[2017-09-18 00:09] LABS: Creatine Kinase 126 U/L (55-170)
[2017-09-18 00:21] LABS: Troponin I <0.012 ng/mL (0.000-0.034)
[2017-09-18] MEDS ORDERED: IPRATROPIUM-ALBUTEROL 3 ML NEB INHALATION STA (01:08)
[2017-09-18] MEDS ORDERED: AZITHROMYCIN 500 MG TAB PO STA (01:09)
[2017-09-18 01:44] VITALS: BP 139/85; PULSE 91; RESP 20
== END 2017-09-18 01:47 | disposition home or self-care (01) ==
LOC: EC 21:12
DX: J44.1 Chronic obstructive pulmonary disease with (acute) exacerbation (principal); R42 Dizziness and giddiness; F90.9 Attention-deficit hyperactivity disorder, unspecified type; F31.9 Bipolar disorder, unspecified; F41.9 Anxiety disorder, unspecified; F43.10 Post-traumatic stress disorder, unspecified; F17.200 Nicotine dependence, unspecified, uncomplicated; Z85.89 Personal history of malignant neoplasm of other organs and systems; Z79.899 Other long term (current) drug therapy
CPT/HCPCS: 36415; 94640 ×2; 93005; 80053; 82550; 82553; 83735; 84484; 85025; 85610; 85730; 71046; 99285; 96374; J2930

== ENCOUNTER → 2018-11-06 | Outpatient (CLI) | payer MEDICARE, OTHER ==
--- NOTE | 2018-11-06 15:45 | CT ---
EXAMINATION TYPE: CT abdomen pelvis w con DATE OF EXAM: 11/06/2018 COMPARISON: 05/02/2017 HISTORY: 48-year-old male with abdominal pain bilaterally below umbilical area TECHNIQUE: Contiguous axial scanning of the abdomen and pelvis following administration of 100 ml Iso mason 300 IV contrast. Delayed images through the kidneys and coronal/sagittal reconstructions perform ed. CT DLP: 3175 mGycm Automated exposure control for dose reduction was used. FINDINGS: Heart normal size without pericardial effusion. Stable volume loss medial right middle lobe with a ba nd of atelectasis. No pleural effusion. No focal liver lesion. Small 6 mm gallstone. No abnormal gallbladder distention. Portal venous system appears patent. No biliary ductal dilatation. Stable 1.0 cm cystic lesion within the uncinate process as compared to 05/02/2017. Ability suggests a benign etiology. Adrenal glands and spleen appear within normal limits. Bilateral pelviectasis slightly more pronounced from prior exam probably transient. There is no hydro ureter or ureteral calculus. Symmetric uptake and excretion of contrast is seen from the kidneys. No dilated small bowel, free fluid, or free air. No mesenteric or retroperitoneal lymphadenopathy. Prominent fluid filled small bowel loops in the mid and lower abdomen. Focal soft tissue thickening in the right paramedian lower abdomen along the short segment of small b owel, refer to axial image 68, coronal image 46, and sagittal image 54. Unable to determine if this r epresents a mural based mass, short segment intussusception, or focally tortuous small bowel. Scattered mild to moderate stool in the colon. There is left-sided clonic diverticulosis. No pericolo jennifer inflammatory change. Bladder wall thickening. Patulous right inguinal canal. No abnormal fluid collection with pelvis or p elvic lymphadenopathy. Bones: Degenerative changes at the hips and SI joints. Facet arthropathy lower lumbar spine. IMPRESSION: 1. FOCAL SOFT TISSUE SMALL BOWEL THICKENING IN THE RIGHT PARAMEDIAN LOWER ABDOMEN. UNABLE TO DETERMIN E IF THIS REPRESENTS A MURAL BASED MASS, SHORT SEGMENT INTUSSUSCEPTION, OR FOCALLY TORTUOUS SMALL BOW EL. CONSIDER SHORT INTERVAL FOLLOW-UP CONTRAST ENHANCED CT IN 1 WEEK'S TIME. 2. PROMINENT FLUID-FILLED SMALL BOWEL LOOPS IN THE MID AND LOWER ABDOMEN MAY BE SEEN WITH ENTERITIS. 3. CIRCUMFERENTIAL BLADDER WALL THICKENING COULD REPRESENT CHRONIC BLADDER HYPERTROPHY OR CYSTITIS. 4. TINY 6 MM GALLSTONE. LEFT-SIDED COLONIC DIVERTICULOSIS WITHOUT ACUTE DIVERTICULITIS.
== END | disposition home or self-care (01) ==
LOC: RADCTMAIN 11:06
PROVIDERS: ATTEND Family Medicine
DX: K80.20 Calculus of gallbladder without cholecystitis without obstruction (principal); K57.30 Diverticulosis of large intestine without perforation or abscess without bleeding; K63.89 Other specified diseases of intestine
CPT/HCPCS: 74177; Q9967

== ENCOUNTER → 2018-11-22 | Outpatient (CLI) | payer MEDICARE, OTHER ==
--- NOTE | 2018-11-22 13:54 | CT ---
EXAMINATION TYPE: CT abdomen pelvis w con DATE OF EXAM: 11/22/2018 COMPARISON: 11/06/2018 HISTORY: Abdominal pain x2 months CT DLP: 1359 mGycm CONTRAST: CT scan of the abdomen and pelvis is performed with Oral Contrast and with IV Contrast, patient injec missy with 80 mL of Isovue 300. FINDINGS: LUNG BASES-: No visible nodule. No infiltrate. LIVER/GB: Previously noted gallstone is not seen with certainty at this time. No space occupying h epatic lesion. Biliary tree is of normal caliber. PANCREAS: No inflammation. Stable cystic lesion uncinate process of the pancreas. SPLEEN: No splenic enlargement. No lesion seen. ADRENALS: No nodule. No thickening. KIDNEYS/BLADDER: No hydronephrosis. No nephrolithiasis. No distinct renal mass. Urinary bladder g rossly unremarkable. BOWEL: Normal appendix. Recently noted focal soft tissue small bowel wall thickening has resolved and may have reflected focal enteritis previously. Small and large bowel are now of normal caliber. Scat tered sigmoid diverticulosis without diverticulitis. Normal bowel caliber. No inflammation. Steroid gastric diverticulum redemonstrated. GENITAL ORGANS: No gross abnormality. LYMPH NODES: No greater than 1cm abdominal or pelvic lymph nodes are appreciated. AORTA: No significant abnormality. OSSEOUS STRUCTURES: No significant abnormality is seen. OTHER: No significant additional abnormality is seen. IMPRESSION: 1. Recently noted focal soft tissue small bowel wall thickening has resolved and may have reflected f ocal enteritis previously 2.Stable cystic lesion uncinate process of the pancreas.
== END | disposition home or self-care (01) ==
LOC: RADCTMAIN 11:46
PROVIDERS: ATTEND Family Medicine
DX: K86.2 Cyst of pancreas (principal)
CPT/HCPCS: 82565; 84520; 74177; 36415; Q9967

== ENCOUNTER 2018-12-11 08:11 | Day surgery (SDC) | payer MEDICARE, OTHER ==
[2018-12-09 16:07] VITALS: BMI 29.5
[~2018-12-11 08:11] MED LIST: LACTATED RINGERS 1,000 ML IV SCH; LIDOCAINE 1% 20 ML VIAL (10MG/ML) FOR IV START INTRADERMA PRN
[2018-12-11 08:36] VITALS: TEMP 98.2
[2018-12-11] MEDS ORDERED: MIDAZOLAM (PF) 2 MG/2 ML VIAL IV ONE (09:40)
[2018-12-11] MEDS ORDERED: PROPOFOL 10 MG/ML 20 ML VIAL IV ONE (09:56)
[2018-12-11] MEDS ORDERED: LIDOCAINE 1% INJ 10MG/ML (20 ML MDV) ONE (09:56)
--- NOTE | 2018-12-11 09:59 | P.GSHP ---
History of Present Illness H&P Date: 12/11/18 Chief Complaint: Change in bowel habits, screening colonoscopy This is a 48-year-old male who's had complaints of diarrhea. He presents today for screening screening colonoscopy. He's never had a colonoscopy before. Past Medical History Past Medical History: Asthma, Cancer, COPD, Renal Disease, Sleep Apnea/CPAP/BIPAP, Thyroid Disorder Additional Past Medical History / Comment(s): HX BACK PAIN, CANCEROUS THROAT TUMOR REMOVED, chemo and radiation. "Poor functioning kidneys." CPAP use. History of Any Multi-Drug Resistant Organisms: None Reported Past Surgical History: Appendectomy Additional Past Surgical History / Comment(s): NECK SURGERY, TRACHEOTOMY, right knee surgery. Past Anesthesia/Blood Transfusion Reactions: No Reported Reaction Past Psychological History: ADD/ADHD, Anxiety, Bipolar, Depression, PTSD Smoking Status: Current some day smoker Past Alcohol Use History: None Reported Additional Past Alcohol Use History / Comment(s): Patient states has been smoking on and off for 30+ yrs. Past Drug Use History: Marijuana Additional Drug Use History / Comment(s): Marijuana use twice per week. Aware no use 24 hrs prior to procedure. - Past Family History Mother Family Medical History: Cancer Additional Family Medical History / Comment(s): Colon cancer. Medications and Allergies Home Medications Medication Instructions Recorded Confirmed Type Albuterol Nebulized [Ventolin 2.5 mg INHALATION RT-Q4H PRN 08/06/15 12/09/18 History Nebulized] FLUoxetine HCL [PROzac] 20 mg PO QAM 08/06/15 12/09/18 History Methylphenidate HCl 20 mg PO TID 12/20/15 12/09/18 History QUEtiapine FUMARATE 100 mg PO HS 12/20/15 12/09/18 History clonazePAM [KlonoPIN] 0.5 mg PO TID 12/20/15 12/09/18 History Mirtazapine [Remeron] 15 mg PO HS tab 03/29/16 12/09/18 Rx Montelukast [Singulair] 10 mg PO HS #30 tab 03/29/16 12/09/18 Rx Albuterol Inhaler [Ventolin Hfa 2 puff INHALATION RT-QID PRN 07/10/16 12/09/18 History Inhaler] Butalb/Asprin/Caff 50-325-40Mg 1 - 2 cap PO Q4HR PRN 07/10/16 12/09/18 History [Fiorinal 50-325-40 MG] Levothyroxine Sodium [Synthroid] 200 mcg PO QAM 05/08/17 12/09/18 History Budesonide/Formoterol Fumarate 2 puff INHALATION TID 12/09/18 12/09/18 History [Symbicort 80-4.5 Mcg Inhaler] Topiramate 50 mg PO QAM 12/09/18 12/09/18 History Allergies Allergy/AdvReac Type Severity Reaction Status Date / Time acetaminophen [From NyQuil] Allergy Dyspnea Verified 12/11/18 08:28 dextromethorphan Allergy Dyspnea Verified 12/11/18 08:28 [From NyQuil] doxylamine [From NyQuil] Allergy Dyspnea Verified 12/11/18 08:28 pseudoephedrine [From NyQuil] Allergy Dyspnea Verified 12/11/18 08:28 Surgical - Exam Vital Signs Temp Pulse Resp BP Pulse Ox 98.2 F 107 H 16 127/80 96 12/11/18 08:34 12/11/18 08:34 12/11/18 08:34 12/11/18 08:34 12/11/18 08:34 - General well developed, well nourished, no distress - Eyes PERRL - ENT normal pinna - Neck no masses - Respiratory normal expansion - Cardiovascular Rhythm: regular - Abdomen Abdomen: soft, non tender Assessment and Plan Assessment: We'll perform screening colonoscopy
--- NOTE | 2018-12-11 10:15 | P.OP ---
Date of Procedure: 12/11/18 Preoperative Diagnosis: Screening colonoscopy Diarrhea Postoperative Diagnosis: Right colon polyp Diverticulosis Procedure(s) Performed: Colonoscopy Anesthesia: MAC Surgeon: Jean Paul Kaufman Pathology: other (Right colon polyp) Condition: stable Disposition: PACU Description of Procedure: The patient's placed on the endoscopy table in the lateral position. He received IV sedation. Digital rectal exam was performed which revealed a few external hemorrhoids. Flexible colonoscope was then placed patient anus passed throughout the entire colon. The ileocecal valve was visualized. The cecum appeared normal. In the right colon there was a polyp seen this removed with snare. The remainder of the right colon and transverse colon appeared normal. In the descending and sigmoid colon is mild diverticular changes. The scope was then brought back the rectum and this appeared normal. Scope was withdrawn for patient.
[2018-12-11 10:53] VITALS: RESP 18
[2018-12-11 10:56] VITALS: BP 113/78; PULSE 82
== END 2018-12-11 10:52 | disposition home or self-care (01) ==
LOC: ORWHC2ENDO 08:11
PROVIDERS: ATTEND Surgery
DX: D12.2 Benign neoplasm of ascending colon (principal); K57.30 Diverticulosis of large intestine without perforation or abscess without bleeding; R19.7 Diarrhea, unspecified; Z80.0 Family history of malignant neoplasm of digestive organs; J44.9 Chronic obstructive pulmonary disease, unspecified; E07.9 Disorder of thyroid, unspecified; N28.9 Disorder of kidney and ureter, unspecified; F31.9 Bipolar disorder, unspecified; F43.10 Post-traumatic stress disorder, unspecified; F90.9 Attention-deficit hyperactivity disorder, unspecified type; F41.9 Anxiety disorder, unspecified; G47.33 Obstructive sleep apnea (adult) (pediatric); F17.210 Nicotine dependence, cigarettes, uncomplicated; Z85.01 Personal history of malignant neoplasm of esophagus; Z92.3 Personal history of irradiation; Z92.21 Personal history of antineoplastic chemotherapy; Z99.89 Dependence on other enabling machines and devices; Z79.890 Hormone replacement therapy; Z79.51 Long term (current) use of inhaled steroids; Z79.899 Other long term (current) drug therapy; Z79.1 Long term (current) use of non-steroidal anti-inflammatories (NSAID); Z79.82 Long term (current) use of aspirin; Z88.6 Allergy status to analgesic agent; Z88.8 Allergy status to other drugs, medicaments and biological substances
CPT/HCPCS: 45385; 88305; J2001; J2704; J2250

== ENCOUNTER 2018-12-23 06:03 | Day surgery (SDC) | payer MEDICARE, OTHER ==
[~2018-12-23 06:03] MED LIST changes: +DEXAMETHASONE SOD PHOSPHATE 10 MG/ML 1 ML VIAL IV ONE; +HEPARIN SODIUM,PORCINE 5,000 UNIT/ML 1 ML VIAL SQ ONE; +HYDROmorphone 0.5 MG/0.5 ML SYRINGE IVP PRN; -LIDOCAINE 1% 20 ML VIAL (10MG/ML) FOR IV START INTRADERMA PRN; +MIDAZOLAM 2 MG/2 ML VIAL IV PRN; +ONDANSETRON 4 MG/2 ML VIAL IVP ONE; +SCOPOLAMINE 1.5MG/72HR PATCH TRANSDERM ONE
[2018-12-23] MEDS ORDERED: LIDOCAINE 1% 20 ML VIAL (10MG/ML) FOR IV START INTRADERMA ONE (06:58)
[2018-12-23] MEDS ORDERED: LIDOCAINE 1% INJ 10MG/ML (20 ML MDV) ONE (07:39)
[2018-12-23] MEDS ORDERED: PROPOFOL 10 MG/ML 20 ML VIAL IV ONE (07:39)
[2018-12-23] MEDS ORDERED: GLYCOPYRROLATE 0.2 MG/ML 2 ML VIAL ONE (07:39)
[2018-12-23] MEDS ORDERED: MIDAZOLAM 2 MG/2 ML VIAL ONE (07:39)
[2018-12-23] MEDS ORDERED: KETOROLAC 30 MG/ML 1 ML VIAL ONE (07:39)
[2018-12-23] MEDS ORDERED: SUCCINYLCHOLINE CHLORIDE 100 MG/5 ML SYR IV ONE (07:39)
[2018-12-23] MEDS ORDERED: fentaNYL (PF) 50 MCG/ML 2 ML AMP ONE (07:39)
[2018-12-23] MEDS ORDERED: ROCURONIUM BROMIDE 10 MG/ML 10 ML VIAL IV ONE (07:39)
[2018-12-23] MEDS ORDERED: NEOSTIGMINE 1 MG/ML 10 ML VIAL ONE (07:39)
[2018-12-23] MEDS ORDERED: BUPIVACAINE (PF) 0.5% 30 ML VIAL SQ ONE (08:02)
[2018-12-23 08:47] VITALS: RESP 16; TEMP 97.5
--- NOTE | 2018-12-23 08:50 | P.GSHP ---
History of Present Illness H&P Date: 12/23/18 Chief Complaint: Right upper quadrant pain This a 48-year-old male with complaints of abdominal pain. His results show shows evidence of cholelithiasis. He presents today for laparoscopic cholecystectomy. Past Medical History Past Medical History: Asthma, Cancer, COPD, Renal Disease, Sleep Apnea/CPAP/BIPAP, Thyroid Disorder Additional Past Medical History / Comment(s): HX BACK PAIN, CANCEROUS THROAT TUMOR REMOVED, chemo and radiation. "Poor functioning kidneys." CPAP use. History of Any Multi-Drug Resistant Organisms: None Reported Past Surgical History: Appendectomy Additional Past Surgical History / Comment(s): NECK SURGERY, TRACHEOTOMY, right knee surgery. Past Anesthesia/Blood Transfusion Reactions: No Reported Reaction Past Psychological History: ADD/ADHD, Anxiety, Bipolar, Depression, PTSD Smoking Status: Current some day smoker Past Alcohol Use History: None Reported Additional Past Alcohol Use History / Comment(s): Patient states has been smoking on and off for 30+ yrs. Past Drug Use History: Marijuana Additional Drug Use History / Comment(s): Marijuana use twice per week. Aware no use 24 hrs prior to procedure. - Past Family History Mother Family Medical History: Cancer Additional Family Medical History / Comment(s): Colon cancer. Medications and Allergies Home Medications Medication Instructions Recorded Confirmed Type Albuterol Nebulized [Ventolin 2.5 mg INHALATION RT-Q4H PRN 08/06/15 12/23/18 History Nebulized] FLUoxetine HCL [PROzac] 20 mg PO QAM 08/06/15 12/23/18 History Methylphenidate HCl 20 mg PO TID 12/20/15 12/23/18 History QUEtiapine FUMARATE 100 mg PO HS 12/20/15 12/23/18 History clonazePAM [KlonoPIN] 0.5 mg PO TID 12/20/15 12/23/18 History Mirtazapine [Remeron] 15 mg PO HS tab 03/29/16 12/23/18 Rx Montelukast [Singulair] 10 mg PO HS #30 tab 03/29/16 12/23/18 Rx Albuterol Inhaler [Ventolin Hfa 2 puff INHALATION RT-QID PRN 07/10/16 12/23/18 History Inhaler] Butalb/Asprin/Caff 50-325-40Mg 1 - 2 cap PO Q4HR PRN 07/10/16 12/23/18 History [Fiorinal 50-325-40 MG] Levothyroxine Sodium [Synthroid] 200 mcg PO QAM 05/08/17 12/23/18 History Budesonide/Formoterol Fumarate 2 puff INHALATION TID 12/09/18 12/23/18 History [Symbicort 80-4.5 Mcg Inhaler] Topiramate 50 mg PO QAM 12/09/18 12/23/18 History Allergies Allergy/AdvReac Type Severity Reaction Status Date / Time acetaminophen [From NyQuil] Allergy Dyspnea Verified 12/23/18 06:39 dextromethorphan Allergy Dyspnea Verified 12/23/18 06:39 [From NyQuil] doxylamine [From NyQuil] Allergy Dyspnea Verified 12/23/18 06:39 pseudoephedrine [From NyQuil] Allergy Dyspnea Verified 12/23/18 06:39 Surgical - Exam Vital Signs Temp Pulse Resp BP Pulse Ox 97.8 F 71 18 93/66 95 12/23/18 06:57 12/23/18 06:57 12/23/18 06:57 12/23/18 06:57 12/23/18 06:57 - General well developed, well nourished, no distress - Eyes PERRL - ENT normal pinna - Respiratory normal expansion - Cardiovascular Rhythm: regular - Abdomen Abdomen: soft, non tender Assessment and Plan Assessment: Cholelithiasis Right upper Quadrant pain We'll perform laparoscopic cholecystectomy.
--- NOTE | 2018-12-23 08:51 | P.OP ---
Date of Procedure: 12/23/18 Preoperative Diagnosis: Cholecystitis Cholelithiasis Postoperative Diagnosis: Cholecystitis Cholelithiasis Procedure(s) Performed: Laparoscopic cholecystectomy Anesthesia: ERNESTINA Surgeon: Jean Paul Kaufman Pathology: none sent Condition: stable Disposition: PACU Description of Procedure: The patient was placed on the operating table. The patient received a general endotracheal tube anesthesia. The patients abdomen was prepped and draped in the usual sterile fashion. Through an infraumbilical stab incision, the fascia of the anterior abdominal wall was grasped with a pair of Kochers and then the Veress needle was placed in the peritoneal cavity. Position of the Veress needle was confirmed with positive drop test. The abdomen was then insufflated. After adequate insufflation, the 10 mm trocar was placed in the peritoneal cavity. Following this the laparoscope was placed in the peritoneal cavity. The patient was placed in the head-up, right side up position and then a 5 mm trocar was placed in the right lateral and right subcostal position under direct visualization. A 8 mm trocar was placed in the epigastric position. The gallbladder was grasped in the fundus and infundibulum. Traction on the gallbladder was placed in the lateral and the cephalad positions. The triangle of Calot was visualized.. The cystic duct was bluntly dissected until the union of the cystic duct and common bile duct was seen. A critical view of safety was achieved. The cystic duct was then divided and sealed with the Harmonic scissors. A PDS Endoloop was then placed throughout the cystic duct stump. The cystic artery divided and sealed with the Harmonic scissors. The gallbladder was then removed from the liver bed using Harmonic scissors. The gallbladder was then extracted through the epigastric port site. Operative field was checked for any bleeding spots and Harmonic scissors was used to coagulate the liver bed. The abdomen was irrigated. The trocars were removed. The skin was closed using interrupted 3-0 Vicryl suture. Dermabond dressing were applied. The patient tolerated the procedure well.
[2018-12-23 09:54] VITALS: BP 119/88; PULSE 52
== END 2018-12-23 09:55 | disposition home or self-care (01) ==
LOC: OR 06:03
PROVIDERS: ATTEND Surgery
DX: K80.10 Calculus of gallbladder with chronic cholecystitis without obstruction (principal); E07.9 Disorder of thyroid, unspecified; J44.9 Chronic obstructive pulmonary disease, unspecified; F17.200 Nicotine dependence, unspecified, uncomplicated; Z80.0 Family history of malignant neoplasm of digestive organs; F43.10 Post-traumatic stress disorder, unspecified; F31.9 Bipolar disorder, unspecified; F41.9 Anxiety disorder, unspecified; Z88.8 Allergy status to other drugs, medicaments and biological substances; Z85.89 Personal history of malignant neoplasm of other organs and systems; Z92.3 Personal history of irradiation; Z92.21 Personal history of antineoplastic chemotherapy; Z79.899 Other long term (current) drug therapy; Z79.890 Hormone replacement therapy; Z79.82 Long term (current) use of aspirin
CPT/HCPCS: 88304; 47562; J2250; J1644; J1100; J2710; J0690; J2405; J2001; J3010; J1885; J0330; J2704

== ENCOUNTER 2020-01-14 16:18 | Inpatient (IN) | payer MEDICARE, OTHER ==
[2020-01-14] MEDS ORDERED: IPRATROPIUM-ALBUTEROL 3 ML NEB INHALATION STA ×3 (16:27→18:15)
[2020-01-14] MEDS ORDERED: SODIUM CHLORIDE 0.9% 1,000 ML IV STA (16:27)
[2020-01-14] MEDS ORDERED: methylPREDNISolone SOD SUCCI 125 MG/2 ML VIAL IV STA (16:27)
--- NOTE | 2020-01-14 16:43 | ED ---
SOB HPI - General Chief Complaint: Shortness of Breath Stated Complaint: EMILIANA Time Seen by Provider: 01/14/20 16:25 Source: patient, RN notes reviewed Mode of arrival: wheelchair Limitations: no limitations - History of Present Illness Initial Comments: This a 50-year-old male with a history of COPD who is still a smoker who presents with complaints of 2 days of shortness of breath getting especially worse and not being helped with his home medications including updrafts. He denies any fevers chills nausea vomiting sweats cough or phlegm production he does complain some chest tightness. He relates this to his difficulty breathing. MD Complaint: shortness of breath - Related Data Home Medications Medication Instructions Recorded Confirmed FLUoxetine HCL [PROzac] 20 mg PO QAM 08/06/15 01/14/20 Methylphenidate HCl 20 mg PO TID 12/20/15 01/14/20 QUEtiapine FUMARATE 100 mg PO HS 12/20/15 01/14/20 clonazePAM [KlonoPIN] 0.5 mg PO TID 12/20/15 01/14/20 Levothyroxine Sodium [Synthroid] 200 mcg PO QAM 05/08/17 01/14/20 Albuterol Sulfate [Ventolin HFA] 2 puff INHALATION RT-Q4H PRN 01/14/20 01/14/20 Budesonide/Formoterol Fumarate 2 puff INHALATION RT-BID 01/14/20 01/14/20 [Symbicort 160-4.5 Mcg Inhaler] Glycopyrrolate/Neb.accessories 25 mcg INHALATION RT-BID 01/14/20 01/14/20 [Lonhala Magnair 25 Mcg Refill] Ipratropium-Albuterol Nebulize 3 ml INHALATION RT-QID PRN 01/14/20 01/14/20 [Duoneb 0.5 mg-3 mg/3 ml Soln] Tiotropium [place] [Spiriva 2 spray INHALATION RT-DAILY 01/14/20 01/14/20 Respimat] Previous Rx's Medication Instructions Recorded Mirtazapine [Remeron] 15 mg PO HS tab 03/29/16 Montelukast [Singulair] 10 mg PO HS #30 tab 03/29/16 Allergies Allergy/AdvReac Type Severity Reaction Status Date / Time acetaminophen [From NyQuil] Allergy Dyspnea Verified 01/14/20 18:14 dextromethorphan Allergy Dyspnea Verified 01/14/20 18:14 [From NyQuil] doxylamine [From NyQuil] Allergy Dyspnea Verified 01/14/20 18:14 pseudoephedrine [From NyQuil] Allergy Dyspnea Verified 01/14/20 18:14 Review of Systems ROS Statement: Those systems with pertinent positive or pertinent negative responses have been documented in the HPI. ROS Other: All systems not noted in ROS Statement are negative. Past Medical History Past Medical History: Asthma, Cancer, COPD, Renal Disease, Sleep Apnea/CPAP/BIPAP, Thyroid Disorder Additional Past Medical History / Comment(s): HX BACK PAIN, CANCEROUS THROAT TUMOR REMOVED, chemo and radiation. "Poor functioning kidneys." CPAP use. History of Any Multi-Drug Resistant Organisms: None Reported Past Surgical History: Appendectomy Additional Past Surgical History / Comment(s): NECK SURGERY, TRACHEOTOMY, right knee surgery. Past Anesthesia/Blood Transfusion Reactions: No Reported Reaction Past Psychological History: ADD/ADHD, Anxiety, Bipolar, Depression, PTSD Smoking Status: Current every day smoker Past Alcohol Use History: None Reported Past Drug Use History: Marijuana - Past Family History Mother Family Medical History: Cancer Additional Family Medical History / Comment(s): Colon cancer. General Exam - General Exam Comments Initial Comments: Is a well-developed molars awake alert anxious. Male who is demonstrating audible wheezing Limitations: no limitations General appearance: alert, anxious, in distress Head exam: Present: atraumatic, normocephalic, normal inspection Eye exam: Present: normal appearance, PERRL, EOMI. Absent: scleral icterus, conjunctival injection, periorbital swelling ENT exam: Present: normal exam, mucous membranes moist Neck exam: Present: normal inspection, full ROM, other. Absent: tenderness, meningismus, lymphadenopathy Respiratory exam: Present: respiratory distress, wheezes, accessory muscle use, decreased breath sounds (No stridor JVD or bruits). Absent: rales, rhonchi, stridor Cardiovascular Exam: Present: normal rhythm, tachycardia, normal heart sounds. Absent: systolic murmur, diastolic murmur, rubs, gallop, clicks GI/Abdominal exam: Present: soft, normal bowel sounds. Absent: distended, tenderness, guarding, rebound, rigid Extremities exam: Present: normal inspection, full ROM, normal capillary refill. Absent: tenderness, pedal edema, joint swelling, calf tenderness Back exam: Present: normal inspection Neurological exam: Present: alert, oriented X3, CN II-XII intact Psychiatric exam: Present: normal affect, normal mood Skin exam: Present: warm, dry, intact, normal color. Absent: rash Course Vital Signs 01/14/20 01/14/20 01/14/20 16:32 16:35 16:41 Temperature 99.0 F Pulse Rate 117 H 105 H 106 H Respiratory 30 H 21 Rate Blood Pressure 167/121 133/81 O2 Sat by Pulse 73 L 99 Oximetry 01/14/20 01/14/20 01/14/20 16:55 17:05 17:15 Temperature Pulse Rate 102 H 105 H 104 H Respiratory Rate Blood Pressure O2 Sat by Pulse Oximetry - Reevaluation(s) Reevaluation #1: 01/14/20 18:17 I did reevaluate patient several occasions he is breathing improved also his sats improved. He still dyspneic and wheezing. Medical Decision Making - Lab Data Result diagrams: 01/14/20 16:34 01/14/20 16:34 Lab Results 01/14/20 01/14/20 01/14/20 Range/Units 16:34 16:34 16:34 WBC 8.8 (3.8-10.6) k/uL RBC 6.06 H (4.30-5.90) m/uL Hgb 17.4 (13.0-17.5) gm/dL Hct 57.0 H (39.0-53.0) % MCV 94.2 (80.0-100.0) fL MCH 28.7 (25.0-35.0) pg MCHC 30.5 L (31.0-37.0) g/dL RDW 15.5 (11.5-15.5) % Plt Count 120 L (150-450) k/uL Neutrophils % 77 % Lymphocytes % 14 % Monocytes % 5 % Eosinophils % 3 % Basophils % 0 % Neutrophils # 6.8 (1.3-7.7) k/uL Lymphocytes # 1.2 (1.0-4.8) k/uL Monocytes # 0.4 (0-1.0) k/uL Eosinophils # 0.2 (0-0.7) k/uL Basophils # 0.0 (0-0.2) k/uL Hypochromasia Moderate Sodium 136 L (137-145) mmol/L Potassium 5.6 H (3.5-5.1) mmol/L Chloride 102 (98-107) mmol/L Carbon Dioxide 28 (22-30) mmol/L Anion Gap 6 mmol/L BUN 18 (9-20) mg/dL Creatinine 1.22 (0.66-1.25) mg/dL Est GFR (CKD-EPI)AfAm 79 (>60 ml/min/1.73 sqM) Est GFR (CKD-EPI)NonAf 68 (>60 ml/min/1.73 sqM) Glucose 126 H (74-99) mg/dL Plasma Lactic Acid Edgar 1.7 (0.7-2.0) mmol/L Calcium 9.1 (8.4-10.2) mg/dL Magnesium 1.9 (1.6-2.3) mg/dL Total Bilirubin 1.1 (0.2-1.3) mg/dL AST 42 (17-59) U/L ALT 22 (4-49) U/L Alkaline Phosphatase 104 (38-126) U/L Creatine Kinase 148 (55-170) U/L Troponin I (0.000-0.034) ng/mL NT-Pro-B Natriuret Pep pg/mL Total Protein 7.6 (6.3-8.2) g/dL Albumin 4.7 (3.5-5.0) g/dL 01/14/20 01/14/20 Range/Units 16:34 16:34 WBC (3.8-10.6) k/uL RBC (4.30-5.90) m/uL Hgb (13.0-17.5) gm/dL Hct (39.0-53.0) % MCV (80.0-100.0) fL MCH (25.0-35.0) pg MCHC (31.0-37.0) g/dL RDW (11.5-15.5) % Plt Count (150-450) k/uL Neutrophils % % Lymphocytes % % Monocytes % % Eosinophils % % Basophils % % Neutrophils # (1.3-7.7) k/uL Lymphocytes # (1.0-4.8) k/uL Monocytes # (0-1.0) k/uL Eosinophils # (0-0.7) k/uL Basophils # (0-0.2) k/uL Hypochromasia Sodium (137-145) mmol/L Potassium (3.5-5.1) mmol/L Chloride (98-107) mmol/L Carbon Dioxide (22-30) mmol/L Anion Gap mmol/L BUN (9-20) mg/dL Creatinine (0.66-1.25) mg/dL Est GFR (CKD-EPI)AfAm (>60 ml/min/1.73 sqM) Est GFR (CKD-EPI)NonAf (>60 ml/min/1.73 sqM) Glucose (74-99) mg/dL Plasma Lactic Acid Edgar (0.7-2.0) mmol/L Calcium (8.4-10.2) mg/dL Magnesium (1.6-2.3) mg/dL Total Bilirubin (0.2-1.3) mg/dL AST (17-59) U/L ALT (4-49) U/L Alkaline Phosphatase (38-126) U/L Creatine Kinase (55-170) U/L Troponin I 0.017 (0.000-0.034) ng/mL NT-Pro-B Natriuret Pep 52 pg/mL Total Protein (6.3-8.2) g/dL Albumin (3.5-5.0) g/dL - EKG Data -: EKG Interpreted by Me EKG shows normal: sinus rhythm EKG Comments: Sinus tachycardia rate of 111. Interval 90 QRS duration 140 QT since QTC of 400/544 right bundle-branch block nonspecific inferior configuration some artifact present - Radiology Data Radiology results: report reviewed (I did review the imaging and report no acute findings seen on x-ray.), image reviewed Critical Care Time Critical Care Time: Yes Total Critical Care Time: 35 Critical Care Time: 35 minutes of critical care time which includes initial presentation with history physical labs x-rays multiple reevaluation patient responsive therapy discuss with the patient family regarding the findings review of old charting discussed with the main physician admission orders and documentation of the above Disposition Clinical Impression: Acute exacerbation of chronic obstructive pulmonary disease, Acute respiratory distress syndrome in adult, Failure of outpatient treatment, Hypoxemia Disposition: ADMITTED IP TO THIS HOSP Condition: Fair Referrals: Lencho Neff MD [Primary Care Provider] - 1-2 days
[2020-01-14 17:12] LABS: Basophils % (A) 0 %; Eosinophils # (A) 0.2 k/uL (0-0.7); Eosinophils % (A) 3 %; HGB 17.4 gm/dL (13.0-17.5); Hypochromasia Moderate; Lymphocytes # (A) 1.2 k/uL (1.0-4.8); Lymphocytes % (A) 14 %; MCH 28.7 pg (25.0-35.0); MCHC 30.5 g/dL (31.0-37.0); MCV 94.2 fL (80.0-100.0); Mean Platelet Volume 11.2; Monocytes # (A) 0.4 k/uL (0-1.0); Monocytes % (A) 5 %; Neutrophils # (A) 6.8 k/uL (1.3-7.7); Neutrophils % (A) 77 %; Platelet Count 120 k/uL (150-450); RBC 6.06 m/uL (4.30-5.90); RDW 15.5 % (11.5-15.5); WBC 8.8 k/uL (3.8-10.6)
[2020-01-14 17:17] LABS: Albumin 4.7 g/dL (3.5-5.0); Calcium 9.1 mg/dL (8.4-10.2); Magnesium 1.9 mg/dL (1.6-2.3); Total Bilirubin 1.1 mg/dL (0.2-1.3); Total Protein 7.6 g/dL (6.3-8.2)
[2020-01-14 17:19] LABS: Potassium 5.6 mmol/L (3.5-5.1)
--- NOTE | 2020-01-14 17:32 | XR ---
EXAMINATION TYPE: XR chest 2V DATE OF EXAM: 01/14/2020 COMPARISON: 09/17/2017 INDICATION: Difficulty breathing TECHNIQUE: Frontal and lateral views of the chest are obtained. FINDINGS: The heart size is normal. The pulmonary vasculature is normal. The lungs are clear. IMPRESSION: 1. No acute pulmonary process.
[2020-01-14 18:42] LABS: D-Dimer 0.4 mg/L FEU (<0.60); INR 0.9 (<1.2); Prothrombin Time 9.4 sec (9.0-12.0)
[2020-01-14] MEDS: SODIUM CHLORIDE 0.9% 1,000 ML IV SCH (18:49)
[2020-01-14] MEDS: IPRATROPIUM-ALBUTEROL 3 ML NEB INHALATION SCH ×2 (20:12→23:51)
[2020-01-14] MEDS: MIRTAZAPINE 15 MG TAB PO SCH (21:40)
[2020-01-14] MEDS: MONTELUKAST 10 MG TAB PO SCH (21:40)
[2020-01-14] MEDS: clonazePAM 0.5 MG TAB PO SCH (21:40)
[2020-01-14] MEDS: methylPREDNISolone SOD SUCCI 125 MG/2 ML VIAL IV SCH (21:59)
[2020-01-14] MEDS: QUEtiapine 100 MG TAB PO SCH (22:00)
[2020-01-15] MEDS: IPRATROPIUM-ALBUTEROL 3 ML NEB INHALATION SCH ×6 (03:39→23:47)
[2020-01-15 06:15] LABS: Glucose,Whole Blood 146 mg/dL (75-99)
[2020-01-15] MEDS: SODIUM CHLORIDE 0.9% 1,000 ML IV SCH ×3 (06:24→22:42)
[2020-01-15] MEDS: methylPREDNISolone SOD SUCCI 125 MG/2 ML VIAL IV SCH ×3 (06:24→17:17)
[2020-01-15] MEDS: INSULIN ASPART (NovoLOG) 100 UNIT/ML VIAL SQ SCH ×4 (06:25→21:05)
[2020-01-15] MEDS: LEVOTHYROXINE 100 MCG TAB PO SCH (06:25)
[2020-01-15] MEDS ORDERED: TIOTROPIUM BROMIDE INHALATION SCH (08:00)
[2020-01-15] MEDS: clonazePAM 0.5 MG TAB PO SCH ×3 (08:45→21:11)
[2020-01-15] MEDS: METHYLPHENIDATE HCL 10 MG TAB PO SCH ×3 (08:45→17:16)
[2020-01-15] MEDS: FLUoxetine HCL 20 MG CAP PO SCH (08:45)
[2020-01-15 11:33] LABS: Calcium 8.4 mg/dL (8.4-10.2); Potassium 5.4 mmol/L (3.5-5.1)
[2020-01-15 12:09] LABS: Glucose,Whole Blood 145 mg/dL (75-99)
--- NOTE | 2020-01-15 14:20 | HP ---
HISTORY AND PHYSICAL A 50-year-old white male, history of COPD, nicotine addiction 2 packs a day. Developed severe shortness of breath at home including updrafts and inhalers. Could not breathe at rest. He was lightheaded, dizzy with ambulation and came to the hospital. He was found to have an asthma COPD exacerbation and admitted to the hospital. Negative D- dimer. HOME MEDICINES: Prozac 20 q.a.m., Ritalin 20 mg t.i.d. 100 mg at night. Clonazepam 0.5 t.i.d., levothyroxine 200 mcg daily, albuterol HFA 2 puffs q.4 hours p.r.n., Symbicort 160/4.5 two puffs b.i.d., LONHALA MAGNAIR 25 mcg b.i.d., DuoNeb q.i.d., Spiriva 2 puffs daily. ALLERGIES: NYQUIL. 14-POINT REVIEW OF SYSTEMS: Negative except for as mentioned in HPI. PAST MEDICAL HISTORY: Asthma, COPD, cancer, renal disease, sleep apnea, thyroid disorder, chemo and radiation for cancer and throat tumor. SURGERIES: Appendectomy, neck surgery, tracheostomy, right knee surgery. PSYCH HISTORY: ADD, anxiety, bipolar depression. Current everyday smoker. FAMILY HISTORY: Mother with colon cancer. PHYSICAL EXAMINATION: Well developed, well nourished, white male with some mild audible wheezing. His heart rate 20 to 25. He is alert. PSYCH: Alert, anxious, and distressed breathing. HEAD: Normocephalic, atraumatic. Pupils equal, round, and reactive. NECK: Supple. No mass. RESPIRATORY: Scattered wheeze and rhonchi x4. Decreased breath sounds x4. CARDIOVASCULAR: S1, S2. Tachycardic. No murmurs, rubs, gallops. GI: Soft, nontender, distended due to obesity. EXTREMITIES: No cyanosis, clubbing, edema. BACK: Normal inspection. NEUROLOGIC: Cranial nerves are intact. PSYCH: Fair mood and affect. SKIN: Warm, dry. No rash. Temperature 99, pulse is 105-117, blood pressure is 130s to 160s/81 to 121, O2 saturation is 73 on admission up to 99, now on 2 L, pulse rate 102 to 104. IMPRESSION: Asthma, COPD exacerbation, acute hypoxemia secondary to above, hyponatremia, hyperkalemia, thrombocytopenia, nicotine addiction. Prognosis guarded. Continue with IV steroids, updrafts, broad antibiotics. Please see further orders. MMODL / IJN: [id number] /
--- NOTE | 2020-01-15 14:45 | P.CNPUL ---
History of Present Illness Consult date: 01/15/20 Reason for consult: dyspnea, cough, COPD Chief complaint: Increased shortness of breath for last 2 days History of present illness: This is a 48-year-old male with extensive history of smoking and nicotine use smokes 2 packs per day came into the hospital with 2-3 day history of increased cuff congestion shortness of breath and wheezing feeling slightly better with IV steroids antibiotics and breathing treatments denies any hemoptysis denies any chest pain, no night sweats fever or chills are present, patient does have history of snoring and sleep disorder breathing and sleep apnea cannot be excluded Review of Systems All systems: negative Past Medical History Past Medical History: Asthma, Cancer, COPD, Renal Disease, Sleep Apnea/ CPAP/BIPAP, Thyroid Disorder Additional Past Medical History / Comment(s): HX BACK PAIN, CANCEROUS THROAT TUMOR REMOVED, chemo and radiation. "Poor functioning kidneys." CPAP use. History of Any Multi-Drug Resistant Organisms: None Reported Past Surgical History: Appendectomy Additional Past Surgical History / Comment(s): NECK SURGERY, TRACHEOTOMY, right knee surgery. Past Anesthesia/Blood Transfusion Reactions: No Reported Reaction Past Psychological History: ADD/ADHD, Anxiety, Bipolar, Depression, PTSD Smoking Status: Current every day smoker Past Alcohol Use History: None Reported Additional Past Alcohol Use History / Comment(s): Patient states has been smoking on and off for 30+ yrs. Past Drug Use History: Marijuana Additional Drug Use History / Comment(s): Marijuana use twice per week. Aware no use 24 hrs prior to procedure. - Past Family History Mother Family Medical History: Cancer Additional Family Medical History / Comment(s): Colon cancer. Medications and Allergies Home Medications Medication Instructions Recorded Confirmed Type FLUoxetine HCL [PROzac] 20 mg PO QAM 08/06/15 01/14/20 History Methylphenidate HCl 20 mg PO TID 12/20/15 01/14/20 History QUEtiapine FUMARATE 100 mg PO HS 12/20/15 01/14/20 History clonazePAM [KlonoPIN] 0.5 mg PO TID 12/20/15 01/14/20 History Mirtazapine [Remeron] 15 mg PO HS tab 03/29/16 01/14/20 Rx Montelukast [Singulair] 10 mg PO HS #30 tab 03/29/16 01/14/20 Rx Levothyroxine Sodium [Synthroid] 200 mcg PO QAM 05/08/17 01/14/20 History Albuterol Sulfate [Ventolin HFA] 2 puff INHALATION RT-Q4H PRN 01/14/20 01/14/20 History Budesonide/Formoterol Fumarate 2 puff INHALATION RT-BID 01/14/20 01/14/20 History [Symbicort 160-4.5 Mcg Inhaler] Glycopyrrolate/Neb.accessories 25 mcg INHALATION RT-BID 01/14/20 01/14/20 History [Lonhala Magnair 25 Mcg Refill] Ipratropium-Albuterol Nebulize 3 ml INHALATION RT-QID PRN 01/14/20 01/14/20 History [Duoneb 0.5 mg-3 mg/3 ml Soln] Tiotropium [place] [Spiriva 2 spray INHALATION RT-DAILY 01/14/20 01/14/20 History Respimat] Allergies Allergy/AdvReac Type Severity Reaction Status Date / Time acetaminophen [From NyQuil] Allergy Dyspnea Verified 01/14/20 18:14 dextromethorphan Allergy Dyspnea Verified 01/14/20 18:14 [From NyQuil] doxylamine [From NyQuil] Allergy Dyspnea Verified 01/14/20 18:14 pseudoephedrine [From NyQuil] Allergy Dyspnea Verified 01/14/20 18:14 Physical Exam Vitals: Vital Signs Temp Pulse Pulse Resp BP BP Pulse Ox 01/15/20 11:14 92 01/15/20 11:02 92 01/15/20 08:00 97.7 F 102 H 18 120/67 92 L 01/15/20 07:47 19 01/15/20 04:00 98.0 F 115 H 18 128/82 100 01/15/20 03:51 114 H 01/15/20 03:39 113 H 01/15/20 00:02 109 H 01/15/20 00:00 97.5 F L 114 H 19 128/80 98 01/14/20 23:52 109 H 01/14/20 20:21 96 01/14/20 20:12 96 01/14/20 20:00 98.1 F 99 18 130/79 86 L 01/14/20 19:56 97.6 F 95 19 119/82 94 L 01/14/20 18:50 87 01/14/20 18:49 94 16 125/87 98 01/14/20 18:39 86 96 01/14/20 17:15 104 H 01/14/20 17:05 105 H 01/14/20 16:55 102 H 01/14/20 16:41 106 H 01/14/20 16:35 105 H 21 133/81 99 01/14/20 16:32 99.0 F 117 H 30 H 167/121 73 L Intake and Output 01/14/20 01/15/20 01/15/20 22:59 06:59 14:59 Intake Total 480 500 Output Total 925 Balance 480 -425 Intake: Intake, IV Titration 500 Amount Sodium Chloride 0.9% 1, 500 000 ml @ 100 mls/hr IV . Q10H LISETH Rx#:[id number] Oral 480 Output: Urine 925 Other: Voiding Method Urinal Urinal Urinal # Voids 1 Weight 99.79 kg 112.7 kg - Constitutional General appearance: average body habitus, cooperative, disheveled - EENT Eyes: EOMI, PERRLA Ears: bilateral: normal - Neck Neck: normal ROM Carotids: bilateral: upstroke normal Thyroid: bilateral: normal size - Respiratory Respiratory: bilateral: CTA - Cardiovascular Rhythm: regular Heart sounds: normal: S1, S2 - Gastrointestinal General gastrointestinal: normal bowel sounds, soft - Neurologic Neurologic: CNII-XII intact - Musculoskeletal Musculoskeletal: gait normal, generalized weakness, strength equal bilaterally - Psychiatric Psychiatric: A&O x's 3, appropriate affect, intact judgment & insight Results - Laboratory Findings CBC and BMP: 01/14/20 16:34 01/15/20 10:49 PT/INR, D-dimer PT 9.4 sec (9.0-12.0) 01/14/20 17:47 INR 0.9 (<1.2) 01/14/20 17:47 D-Dimer 0.40 mg/L FEU (<0.60) 01/14/20 17:47 Abnormal lab findings: Abnormal Labs 01/14/20 01/14/20 01/15/20 16:34 16:34 06:13 RBC 6.06 H Hct 57.0 H MCHC 30.5 L Plt Count 120 L Sodium 136 L Potassium 5.6 H Carbon Dioxide BUN Glucose 126 H POC Glucose (mg/dL) 146 H 01/15/20 01/15/20 10:49 12:07 RBC Hct MCHC Plt Count Sodium Potassium 5.4 H Carbon Dioxide 31 H BUN 21 H Glucose 168 H POC Glucose (mg/dL) 145 H - Diagnostic Findings Chest x-ray: report reviewed, image reviewed (Chest x-ray performed the time admission consistent with COPD-like changes howeversignificant acute pathology identified) Assessment and Plan Assessment: Acute COPD exacerbation Tracheobronchitis Extensive history of smoking and nicotine use Sleep disorder breathing and sleep apnea cannot be excluded Bipolar disorder PTSD Plan: Continue bronchodilator Antibiotics Nebulizer treatment with bronchodilator Continue home medications Further recommendations pending plan of care as per clinical response of patient Schedule PFT and PSG as outpatient Time with Patient: Greater than 30
[2020-01-15 16:52] LABS: Glucose,Whole Blood 170 mg/dL (75-99)
[2020-01-15 21:01] LABS: Glucose,Whole Blood 235 mg/dL (75-99)
[2020-01-15] MEDS: MONTELUKAST 10 MG TAB PO SCH (21:11)
[2020-01-15] MEDS: QUEtiapine 100 MG TAB PO SCH (21:11)
[2020-01-15] MEDS: MIRTAZAPINE 15 MG TAB PO SCH (21:11)
[2020-01-16] MEDS: IPRATROPIUM-ALBUTEROL 3 ML NEB INHALATION SCH ×4 (03:48→15:20)
[2020-01-16] MEDS: LEVOTHYROXINE 100 MCG TAB PO SCH (05:45)
[2020-01-16] MEDS: methylPREDNISolone SOD SUCCI 125 MG/2 ML VIAL IV SCH ×3 (05:45→12:37)
[2020-01-16 07:13] LABS: Glucose,Whole Blood 143 mg/dL (75-99)
[2020-01-16] MEDS: INSULIN ASPART (NovoLOG) 100 UNIT/ML VIAL SQ SCH ×3 (07:44→15:39)
[2020-01-16] MEDS: FLUoxetine HCL 20 MG CAP PO SCH (09:03)
[2020-01-16] MEDS: METHYLPHENIDATE HCL 10 MG TAB PO SCH ×2 (09:04→12:38)
[2020-01-16] MEDS: clonazePAM 0.5 MG TAB PO SCH ×2 (09:04→15:43)
[2020-01-16 10:30] VITALS: RESP 20
--- NOTE | 2020-01-16 10:31 | P.PN ---
Subjective Progress Note Date: 01/16/20 Principal diagnosis: Acute COPD exacerbation Tracheobronchitis Extensive history of smoking and nicotine use Sleep disorder breathing and sleep apnea cannot be excluded Bipolar disorder PTSD 01/16/2020, patient seen eval examined during the rounds labs reviewed medications reviewed care plan discussed, still have ongoing shortness of breath cough and wheezing however patient insist on going home severity or respiratory distress significantly improved however compared to admit This is a 48-year-old male with extensive history of smoking and nicotine use smokes 2 packs per day came into the hospital with 2-3 day history of increased cuff congestion shortness of breath and wheezing feeling slightly better with IV steroids antibiotics and breathing treatments denies any hemoptysis denies any chest pain, no night sweats fever or chills are present, patient does have history of snoring and sleep disorder breathing and sleep apnea cannot be excluded Objective - Vital Signs Vital signs: Vital Signs Temp 97.7 F 01/16/20 04:48 Pulse 105 H 01/16/20 08:39 Resp 18 01/16/20 04:48 BP 136/86 01/16/20 04:48 Pulse Ox 93 L 01/16/20 08:24 Intake & Output 01/15/20 01/16/20 01/16/20 18:59 06:59 18:59 Intake Total 240 Output Total 700 Balance 240 -700 Intake: Oral 240 Output: Urine 700 Other: Voiding Method Urinal Toilet Urinal # Voids 1 - Exam - Constitutional General appearance: average body habitus, cooperative, disheveled - EENT Eyes: EOMI, PERRLA Ears: bilateral: normal - Neck Neck: normal ROM Carotids: bilateral: upstroke normal Thyroid: bilateral: normal size - Respiratory Respiratory: bilateral: CTA - Cardiovascular Rhythm: regular Heart sounds: normal: S1, S2 - Gastrointestinal General gastrointestinal: normal bowel sounds, soft - Neurologic Neurologic: CNII-XII intact - Musculoskeletal Musculoskeletal: gait normal, generalized weakness, strength equal bilaterally - Psychiatric Psychiatric: A&O x's 3, appropriate affect, intact judgment & insight - Labs CBC & Chem 7: 01/14/20 16:34 01/15/20 10:49 Labs: Abnormal Lab Results - Last 24 Hours (Table) 01/15/20 01/15/20 01/15/20 Range/Units 10:49 12:07 16:51 Potassium 5.4 H (3.5-5.1) mmol/L Carbon Dioxide 31 H (22-30) mmol/L BUN 21 H (9-20) mg/dL Glucose 168 H (74-99) mg/dL POC Glucose (mg/dL) 145 H 170 H (75-99) mg/dL 01/15/20 01/16/20 Range/Units 20:24 06:59 Potassium (3.5-5.1) mmol/L Carbon Dioxide (22-30) mmol/L BUN (9-20) mg/dL Glucose (74-99) mg/dL POC Glucose (mg/dL) 235 H 143 H (75-99) mg/dL Assessment and Plan Assessment: Acute COPD exacerbation Tracheobronchitis Extensive history of smoking and nicotine use Sleep disorder breathing and sleep apnea cannot be excluded Bipolar disorder PTSD Plan: Continue bronchodilator Antibiotics Nebulizer treatment with bronchodilator Continue home medications Further recommendations pending plan of care as per clinical response of patient Schedule PFT and PSG as outpatient Time with Patient: Greater than 30
[2020-01-16 11:57] LABS: Glucose,Whole Blood 205 mg/dL (75-99)
[2020-01-16 11:58] VITALS: BP 110/72; TEMP 98
[2020-01-16] MEDS: SODIUM CHLORIDE 0.9% 1,000 ML IV SCH (12:39)
[2020-01-16 15:33] VITALS: PULSE 105
--- NOTE | 2020-01-17 10:02 | CDI ---
Documentation Clarification Form Date: 01/17/2020 09:46:52 AM From: Saskia Brownlee Phone: If you have a question about this query, please contact Eugenia Castro Aquatics Instructor at [phone] between 8am and 5pm. Admit Date: 01/14/2020 06:19:00 PM Patient Name: Jason Oliver Visit Number: [id number] Discharge Date: 01/16/2020 04:33:00 PM ATTENTION: The Clinical Documentation Specialists (CDI) and [facility] Coding Staff appreciate your assistance in clarifying documentation. Please respond to the clarification below the line at the bottom and electronically sign. The CDI & [facility] Coding staff will review the response and follow-up if needed. Please note: Queries are made part of the Legal Health Record. If you have any questions, please contact the author of this message via ITS. Dr. Lencho Neff This patient is admitted with respiratory distress per ER note. Patient with acute exacerbation of COPD and asthma. Diagnosis of acute respiratory distress not carried through chart. Please clarify if patient was in acute Respiratory Distress or was this ruled out. History/Risk Factors: Patient with COPD and ashthma, positive smoker Clinical Indicators: Patient O2 sat on admit 73% on RA. Patient placed on Non Rebreather 12 Vital Signs: 99.0 F, 117 bpm, 30 Resp, 167/121 73% RA Treatment: Non Rebreather 12 15 Oxygen: Later in stay NC 2, 3 and 4 L Medications: IV steroids, updrafts and broad spectrum ABX In order to accurately reflect the severity of condition, please indicate if the above clinical findings and treatment signify a respiratory condition, such as: Acute Respiratory Distress Acute Respiratory Distress Ruled out Other, please specify Unable to determine: MTDD
--- NOTE | 2020-01-19 20:44 | PN ---
PROGRESS NOTE ADDENDUM: Acute respiratory distress. MMODL / IJN: [id number] /
== END 2020-01-16 16:33 | disposition home or self-care (01) | DRG 190 ==
LOC: EC 16:18 → 3SCARD 18:19 → 5NMEDONC 01-15 22:19
PROVIDERS: ADMIT Family Medicine; ATTEND Family Medicine
DX: J44.1 Chronic obstructive pulmonary disease with (acute) exacerbation (principal); J80 Acute respiratory distress syndrome; J45.901 Unspecified asthma with (acute) exacerbation; E87.1 Hypo-osmolality and hyponatremia; E87.5 Hyperkalemia; F17.210 Nicotine dependence, cigarettes, uncomplicated; F43.10 Post-traumatic stress disorder, unspecified; G47.30 Sleep apnea, unspecified; Z99.89 Dependence on other enabling machines and devices; F31.9 Bipolar disorder, unspecified; D69.6 Thrombocytopenia, unspecified; N28.9 Disorder of kidney and ureter, unspecified; Z79.51 Long term (current) use of inhaled steroids; Z79.890 Hormone replacement therapy; Z79.899 Other long term (current) drug therapy; Z80.0 Family history of malignant neoplasm of digestive organs; E66.9 Obesity, unspecified; Z68.36 Body mass index [BMI] 36.0-36.9, adult; Z85.819 Personal history of malignant neoplasm of unspecified site of lip, oral cavity, and pharynx; Z92.3 Personal history of irradiation; Z92.21 Personal history of antineoplastic chemotherapy; Z90.49 Acquired absence of other specified parts of digestive tract
CPT/HCPCS: 36415; 71046; 80048; 80053; 82550; 83605; 83735; 83880; 84484; 85025; 85379; 85610; 85730; 93005; 94640; 94760; 96361; 96374; 99291

== ENCOUNTER → 2020-02-19 | Outpatient (CLI) | payer MEDICARE, OTHER | END | disposition home or self-care (01) | LOC: CPPFTMAIN 12:28 | PROVIDERS: ATTEND Internal Medicine Sleep Medicine | DX: J43.9 Emphysema, unspecified (principal) | CPT/HCPCS: 94060; 94726; 94729 ==

== ENCOUNTER → 2021-01-12 | Outpatient (CLI) | payer MEDICARE, OTHER ==
[2021-01-12 15:21] LABS: Basophils % (A) 0 %; Eosinophils # (A) 0.1 k/uL (0-0.7); Eosinophils % (A) 1 %; HCT 52.4 % (39.0-53.0); HGB 16.8 gm/dL (13.0-17.5); Hypochromasia Slight; Lymphocytes # (A) 0.9 k/uL (1.0-4.8); Lymphocytes % (A) 16 %; MCH 30.2 pg (25.0-35.0); MCV 94.3 fL (80.0-100.0); Mean Platelet Volume 10.5; Monocytes # (A) 0.4 k/uL (0-1.0); Monocytes % (A) 6 %; Neutrophils # (A) 4.4 k/uL (1.3-7.7); Neutrophils % (A) 75 %; Platelet Count 129 k/uL (150-450); RBC 5.55 m/uL (4.30-5.90); RDW 15.2 % (11.5-15.5); WBC 5.8 k/uL (3.8-10.6)
== END | disposition home or self-care (01) ==
LOC: LABPAT 14:05
PROVIDERS: ATTEND Surgery
DX: Z01.818 Encounter for other preprocedural examination (principal); K43.0 Incisional hernia with obstruction, without gangrene; I25.2 Old myocardial infarction; I45.10 Unspecified right bundle-branch block; I44.5 Left posterior fascicular block; I45.2 Bifascicular block; R94.31 Abnormal electrocardiogram [ECG] [EKG]
CPT/HCPCS: 36415; 85025; 93005

== ENCOUNTER → 2021-03-04 | Outpatient (CLI) | payer MEDICARE, OTHER ==
[~2021-03-04] MED LIST changes: -DEXAMETHASONE SOD PHOSPHATE 10 MG/ML 1 ML VIAL IV ONE; -HEPARIN SODIUM,PORCINE 5,000 UNIT/ML 1 ML VIAL SQ ONE; -HYDROmorphone 0.5 MG/0.5 ML SYRINGE IVP PRN; -LACTATED RINGERS 1,000 ML IV SCH; -MIDAZOLAM 2 MG/2 ML VIAL IV PRN; -ONDANSETRON 4 MG/2 ML VIAL IVP ONE; +REGADENOSON 0.4 MG/5 ML SYRINGE IV PRN; -SCOPOLAMINE 1.5MG/72HR PATCH TRANSDERM ONE
--- NOTE | 2021-03-04 11:05 | NM ---
"EXAMINATION TYPE: NM stress lexiscan cardiolite DATE OF EXAM: 03/04/2021 COMPARISON: NONE HISTORY: COPD. Abnormal EKG. History of tobacco use and asthma along with 2009 myocardial infarction. History of throat cancer. TECHNIQUE: After the intravenous administration of 9.75 mCi Tc 99m Sestamibi - Cardiolite resting SP ECT images acquired 45 minutes post injection. The patient received 0.4mg Lexiscan, 25.5 mCi Tc 99m Sestamibi - Stress images obtained [address] injection FINDINGS: Review of stress and rest SPECT images demonstrates poor radiotracer uptake involving the inferior le ft ventricular wall on stress and rest images. There is significant septal involvement also identifie d. On current study there is diminished radiotracer uptake in the lateral left ventricular wall on stres s images versus corresponding rest images best seen short axis and horizontal long axis views in whic h area of acute ischemia cannot be excluded. Gated analysis shows normal wall motion with an estimate d left ventricular ejection fraction of 46 % slightly deviated from the normal range. 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 Cannot exclude reversible ischemia in the lateral left ventricular wal l. Need to further investigate by direct catheter angiogram should be based on degree of clinical alice picion. A Yellow level critical message alert has been initiated for Lencho Neff MD via the Performance Indicator 36 0 | Critical Results System on 03/04/2021 11:03 AM. This message alert has been sent to Lencho pinzon MD via the preferences provided by the clinician for the receipt of Radiology Critical Findings. Esthela essage ID [id number]."
--- NOTE | 2021-03-04 12:00 | ECHOF ---
Referral Reason:J44.9 COPD, R94.31 Abnormal EKG MEASUREMENTS -------- HEIGHT: 175.3 cm WEIGHT: 72.6 kg BP: RVIDd: 3.6 cm (< 3.3) IVSd: 1.6 cm (0.6 - 1.1) LVIDd: 4.5 cm (3.9 - 5.3) LVPWd: 1.3 cm (0.6 - 1.1) IVSs: 2.1 cm LVIDs: 2.8 cm LVPWs: 1.8 cm LAESV Index (A-L): 23.13 ml/m Ao Diam: 3.7 cm (2.0 - 3.7) AV Cusp: 2.0 cm (1.5 - 2.6) LA Diam: 3.8 cm (2.7 - 3.8) MV EXCURSION: 22.667 mm (> 18.000) MV EF SLOPE: 67 mm/s (70 - 150) EPSS: 0.5 cm MV E Favian: 0.82 m/s MV DecT: 261 ms MV A Favian: 0.66 m/s MV E/A Ratio: 1.26 RAP: 5.00 mmHg RVSP: 33.41 mmHg FINDINGS -------- Sinus rhythm. This was a technically adequate study. The left ventricular size is normal. There is moderate concentric left ventricular hypertrophy. O verall left ventricular systolic function is low-normal with, an EF between 50 - 55 %. Atypical sep yessenia wall motion The right ventricle is mildly enlarged. Normal LA size by volume 22+/-6 ml/m2. The right atrium is mildly enlarged. Interatrial and interventricular septum intact. The aortic valve is trileaflet and appears structurally normal. There is no evidence of aortic regu rgitation. There is no evidence of aortic stenosis. No mitral regurgitation. Mild tricuspid regurgitation present. There is borderline pulmonary artery hypertension. The righ t ventricular systolic pressure, as measured by Doppler, is 33.41mmHg. There is no pulmonic regurgitation present. The aortic root size is normal. IVC Not well visulized. There is no pericardial effusion. CONCLUSIONS -------- 1. The left ventricular size is normal. 2. There is moderate concentric left ventricular hypertrophy. 3. Overall left ventricular systolic function is low-normal with, an EF between 50 - 55 %. 4. The right ventricle is mildly enlarged. 5. The right atrium is mildly enlarged. 6. Mild tricuspid regurgitation present. SUPERVISOR [employer] CUTTING: Kalli Quigley RDCS
--- NOTE | 2021-03-04 15:35 | EST ---
EXERCISE STRESS LEXISCAN STRESS TEST: AGE: 51 SEX: M HT: 5'9" WT: 160 lbs. PROTOCOL: Lexiscan STAGE: NA DURATION OF EXERCISE: 5 minutes HEART RATE REST: 76 BLOOD PRESSURE REST: 91/73 MAXIMUM HEART RATE ACHIEVED: 123 MAXIMUM BLOOD PRESSURE: 118/77 85% MPHR: 142 100% MPHR: 167 METS: NA INDICATIONS: Abnormal EKG, COPD CLINICAL INFORMATION: Baseline EKG revealed normal sinus rhythm with right bundle branch block pattern and repolarization abnormality. With Lexiscan administration, heart rate changed from 76 to 123 beats per minute. Blood pressure changed from 191/73 to 118/67. EKG did not reveal any new findings. By EKG criteria, this is an inconclusive Lexiscan stress test with a lot of baseline artifact. The nuclear scan results, which are more pertinent, will be reported by the radiologist. KYLIE / NADYA: [id number] /
== END | disposition home or self-care (01) ==
LOC: RADNMMAIN 08:12
PROVIDERS: ATTEND Family Medicine
DX: I25.2 Old myocardial infarction (principal); I36.1 Nonrheumatic tricuspid (valve) insufficiency
CPT/HCPCS: 93017; 93306; 78452; A9500; J2785

== ENCOUNTER → 2021-03-07 | Outpatient (CLI) | payer MEDICARE, OTHER ==
[2021-03-07 15:54] LABS: HCT 51.9 % (39.0-53.0); HGB 15.8 gm/dL (13.0-17.5); MCH 28.7 pg (25.0-35.0); MCHC 30.5 g/dL (31.0-37.0); MCV 94.3 fL (80.0-100.0); Mean Platelet Volume 11.2; Platelet Count 108 k/uL (150-450); RDW 15.3 % (11.5-15.5); WBC 6.2 k/uL (3.8-10.6)
[2021-03-07 16:03] LABS: Potassium 4.4 mmol/L (3.5-5.1)
== END | disposition home or self-care (01) ==
LOC: LABPAT 15:10
PROVIDERS: ATTEND Internal Medicine Interventional Cardiology
DX: Z01.812 Encounter for preprocedural laboratory examination (principal)
CPT/HCPCS: 80051; 82565; 84520; 85027

== ENCOUNTER 2021-03-21 07:39 | Day surgery (SDC) | payer MEDICARE, OTHER ==
[2021-03-17 15:10] VITALS: BMI 34.0
[~2021-03-21 07:39] MED LIST changes: +ALPRAZolam 0.25 MG TAB PO PRN; +ALPRAZolam 0.5 MG TAB PO PRN; +ASPIRIN 325 MG TAB PO ONE; +ASPIRIN 325 MG TAB PO STA; +ATORVASTATIN 80 MG TAB PO ONE; +ATORVASTATIN 80 MG TAB PO STA; +HEPARIN SODIUM,PORCINE 10,000 UNIT in SODIUM CHLORIDE 0.9% 1,000 ML IRRIGATION PRN; +HEPARIN SODIUM,PORCINE 2,500 UNIT in SODIUM CHLORIDE 0.9% 250 ML IRRIGATION PRN; +NITROGLYCERIN SL TABS 0.4 MG TAB SUBLINGUAL PRN; -REGADENOSON 0.4 MG/5 ML SYRINGE IV PRN; +SODIUM CHLORIDE 0.9% 1,000 ML in EMPTY BAG 1 BAG IV SCH
[2021-03-21 08:24] VITALS: TEMP 98
[2021-03-21] MEDS ORDERED: VERAPAMIL 2.5 MG/ML 2 ML AMP ONE (08:49)
[2021-03-21] MEDS ORDERED: LIDOCAINE 1% INJ 10MG/ML (20 ML MDV) ONE (08:49)
[2021-03-21] MEDS ORDERED: HEPARIN SODIUM 1,000 UN/ML (10ML VL) ONE (08:52)
[2021-03-21] MEDS ORDERED: MIDAZOLAM 2 MG/2 ML VIAL IV ONE (09:06)
[2021-03-21] MEDS ORDERED: LIDOCAINE 1% INJ 10MG/ML (20 ML MDV) SQ ONE (09:07)
[2021-03-21] MEDS ORDERED: fentaNYL (PF) 50 MCG/ML 2 ML AMP ONE (09:07)
[2021-03-21] MEDS ORDERED: fentaNYL (PF) 50 MCG/ML 2 ML AMP IV ONE (09:08)
[2021-03-21] MEDS: VERAPAMIL SYRINGE (5 MG/10 ML) INTRAARTER ONE ×2 (09:10→09:17)
[2021-03-21] MEDS ORDERED: HEPARIN SODIUM 1,000 UN/ML (10ML VL) IV ONE (09:12)
[2021-03-21] MEDS ORDERED: IOPAMIDOL-370 125ML BTL INJ ONE (09:16)
[2021-03-21] MEDS ORDERED: RX INFO: IV CONTRAST WAS GIVEN 1 EACH MISC MISCELLANE PRN (09:24)
[2021-03-21] MEDS ORDERED: SODIUM CHLORIDE 0.9% 1,000 ML IV SCH (09:30)
--- NOTE | 2021-03-21 11:20 | CC ---
CARDIAC CATHETERIZATION REPORT DATE OF SERVICE: 03/21/2021 PERFORMING PHYSICIAN: Terrence Rosen M.D. PROCEDURES PERFORMED: 1. Selective right and left coronary angiogram. 2. Left heart catheterization. INDICATION: This is a 51-year-old gentleman with hypertension and dyslipidemia who was experiencing chest discomfort and underwent myocardial perfusion imaging stress test and that revealed large fixed defect with reversibility. APPROACH: Right radial artery. COMPLICATIONS: None. LEVEL OF SEDATION: Moderate, with sedation length of 14 minutes. PROCEDURE DESCRIPTION: After obtaining informed consent, the patient was brought to the cardiac wastewater analyst lab analyst. The right radial artery was cannulated using micropuncture technique under ultrasound guidance. The micropuncture wire passed easily. Then I placed a 6-Macedonian sheath in the right radial artery. Selective right and left coronary angiogram was performed with JR4 and JL3.5 catheters. Left heart catheterization was performed using a 5-Macedonian pigtail catheter. Please note that the patient was given 6000 units of heparin IV. SELECTIVE CORONARY ANGIOGRAM: 1. The RCA is a large-caliber vessel. It is a dominant vessel. The RCA has mild disease only. Distally it bifurcates into PDA and PLV branches. Both appeared to be angiographically normal. 2. The left main is a short left main and almost nonexistent. 3. The left circumflex is a large-caliber vessel. The left circumflex is a codominant vessel. The left circumflex is angiographically normal. It gives rise to a large OM branch in the mid portion and that appeared to be angiographically normal. 4. The LAD is a large-caliber vessel. The LAD is angiographically normal. It gives rise to a large diagonal branch which seems to be angiographically normal. 5. HEMODYNAMICS: The LVEDP was about 14-16 mmHg without significant gradient across the aortic valve. CONCLUSION: 1. Mild nonobstructive coronary artery disease. 2. Mildly elevated LVEDP. POSTPROCEDURE MANAGEMENT: Medical treatment and followup with the patient. MMODL / IJN: [id number] /
[2021-03-21] MEDS ORDERED: SODIUM CHLORIDE 0.9% 1,000 ML in EMPTY BAG 1 BAG IV SCH (12:00)
[2021-03-21 12:01] VITALS: PULSE 74; RESP 14
[2021-03-21 12:02] VITALS: BP 123/71
== END 2021-03-21 13:32 | disposition home or self-care (01) ==
LOC: CATHCVL 07:39
PROVIDERS: ATTEND Internal Medicine Interventional Cardiology
DX: I25.110 Atherosclerotic heart disease of native coronary artery with unstable angina pectoris (principal); I45.10 Unspecified right bundle-branch block; Z20.822 Contact with and (suspected) exposure to COVID-19; R94.39 Abnormal result of other cardiovascular function study; F17.210 Nicotine dependence, cigarettes, uncomplicated; E66.3 Overweight; Z68.34 Body mass index [BMI] 34.0-34.9, adult; Z79.82 Long term (current) use of aspirin; Z79.890 Hormone replacement therapy; Z79.899 Other long term (current) drug therapy
CPT/HCPCS: 93458; 87635; C1894; J2250; J2001; J3010; J1644; Q9967

== ENCOUNTER → 2022-11-30 | Outpatient (CLI) | payer MEDICARE, OTHER ==
[2022-11-30 14:36] LABS: African American GFR (CKD) 64 (>60 ml/min/1.73 sqM); Blood Urea Nitrogen 22 mg/dL (9-20); Non-African American GFR(CKD) 56 (>60 ml/min/1.73 sqM)
--- NOTE | 2022-12-01 07:44 | CT ---
EXAMINATION TYPE: CT neck chest w con DATE OF EXAM: 11/30/2022 3:51 PM COMPARISON: CT soft tissue neck 07/10/2016 HISTORY: hx of throat ca. pt presents with rt neck mass and chest pain. CT DLP: 815 mGycm Automated exposure control for dose reduction was used. CONTRAST: CT scan of the neck and chest is performed following with IV Contrast, patient injected with 80 mL of Isovue 300. Axial images are obtained, coronal and sagittal reformatted images are reviewed. FINDINGS: NECK: Brain: Visualized portions are grossly unremarkable. Orbits: Unremarkable Sinuses: The mastoid air cells are clear. The bilateral maxillary sinuses, frontal sinuses, and sphen oid sinuses are clear. Minimal mucosal thickening of the bilateral anterior ethmoid sinuses. Suprahyoid Neck: The oropharynx, oral cavity, parapharyngeal and retropharyngeal spaces are clear and symmetric. The nasopharynx is unremarkable. Infrahyoid Neck: The larynx, hypopharynx, and supraglottic area are clear and symmetric. Parotid Glands: Unremarkable. Submandibular Glands: Unremarkable. Musculoskeletal: No acute osseous pathology. Multilevel facet arthropathy. No aggressive osseous lesi on. There is redemonstration of a fat-containing elongated mass measuring 5.6 x 2.1 x 1.6 cm lateral to the right scalene muscles (series 201, image 69). Lymph nodes: No pathologically enlarged cervical lymph nodes identified. Vascular structures: Minimal atherosclerotic calcifications of the internal carotid arteries. Soft tissues/Thyroid: Thyroid and remainder of the soft tissues are unremarkable. Other: none. CHEST: LUNGS/ PLEURA: Moderate centrilobular emphysematous changes. No pleural effusion, pneumothorax, focal consolidation. Minimal right lower lobe atelectasis. Lateral left upper lobe punctate 2 mm calcifie d granuloma. No suspicious pulmonary nodules or masses. AIRWAY: Patent and unremarkable.. HEART: Size within normal limits. No pericardial effusion. MEDIASTINUM: No evidence of adenopathy. VASCULATURE: No aortic aneurysm. Dilated main pulmonary measuring up to 3.8 cm which can be seen in setting of pulmonary arterial hypertension. MUSCULOSKELETAL: No acute osseous abnormalities. No aggressive osseous lesion. SOFT TISSUES/LYMPH NODES: Bilateral gynecomastia. LOWER NECK: No significant findings. UPPER ABDOMEN: Postcholecystectomy changes. IMPRESSION: 1. There is redemonstration of a benign-appearing lipoma lateral to the right scalene muscles. 2. Moderate COPD changes. 3. Dilated main pulmonary which can be seen setting of pulmonary arterial hypertension.
== END | disposition home or self-care (01) ==
LOC: RADCTMAIN 13:31
PROVIDERS: ATTEND Family Medicine
DX: D17.0 Benign lipomatous neoplasm of skin and subcutaneous tissue of head, face and neck (principal); I27.21 Secondary pulmonary arterial hypertension; J43.2 Centrilobular emphysema
CPT/HCPCS: 82565; 84520; 70491; 71260; 36415; Q9967

== ENCOUNTER → 2023-03-28 | Outpatient (CLI) | payer MEDICARE, OTHER ==
--- NOTE | 2023-03-28 08:33 | CTL ---
EXAMINATION TYPE: CT Low Dose Lung DATE OF EXAM ORDERED: 03/28/2023 HISTORY: Z12.2 ENCNTR SCREEN FOR MALIGNANT NEOPLASM OF RESP. Lung cancer screening. Current smoker, [address] DLP: 122.[address] CTDI: 3.30 mGy Automated exposure control for dose reduction was used. SCREENING VISIT: First screening visit COMPARISON: CT neck chest 11/30/2022, PET/CT 07/07/2017 TECHNIQUE: Low dose computed tomography scan was performed through the chest at 1 mm thick sections a nd reconstructed images in multiple planes at 1 mm and [address] DIAGNOSTIC QUALITY: Satisfactory FINDINGS: LUNG NODULES: Left lateral upper lobe 2.7 mm pulmonary nodule (series 6, image 32). Right upper lobe 1.4 mm pulmonary nodule (series 6, image 17). Right upper lobe 2 mm pulmonary nodule (series 6, image 19). LUNGS: COPD: Severity: Moderate Fibrosis: Severity: None Lymph nodes: None Other findings: None RIGHT PLEURAL SPACE: Effusion: None Calcification: None Thickening: None Pneumothorax: None LEFT PLEURAL SPACE: Effusion: None Calcification: None Thickening: None Pneumothorax: None HEART: Heart Size: Normal Coronary Calcification: None Pericardial Effusion: None OTHER FINDINGS: Upper abdomen: Gastric fundal diverticulum. Bony thorax: None Supraclavicular region: None Other: Dilated main pulmonary artery measuring up to 3.9 cm which can be seen in the setting of pulmo nary arterial hypertension. Bilateral gynecomastia. IMPRESSION: Few scattered pulmonary nodules measuring up to 2.[address] LUNG RAD AND CT CHEST RECOMMENDATION: Lung-Rad 2 Benign Appearance or Behavior: Continue annual sc reening with LDCT in 12 months. S Modifier (other clinically significant findings): None
== END | disposition home or self-care (01) ==
LOC: RADCTMAIN 06:26
PROVIDERS: ATTEND Family Medicine
DX: Z12.2 Encounter for screening for malignant neoplasm of respiratory organs (principal); R91.8 Other nonspecific abnormal finding of lung field; F17.210 Nicotine dependence, cigarettes, uncomplicated
CPT/HCPCS: 71271

== ENCOUNTER → 2023-04-23 | Outpatient (CLI) | payer MEDICARE, OTHER ==
--- NOTE | 2023-04-23 09:40 | CA ---
Transthoracic Echo Report Name: Jason Oliver Age: 53 Gender: M : 1970 Exam Date: 04/23/2023 08:33 Exam Location: [place] [facility] Ht (in): 69 Wt (lb): 235 Ordering Physician: Lencho Neff MD Attending/Referring Phys: Geological Scout Jennifer Ghotra [facility] Procedure CPT: Indications: I50.30 Congestive heart failure Cardiac Hx: Technical Quality: Fair Contrast 1: Total Dose (mL): Contrast 2: Total Dose (mL): MEASUREMENTS (Male / Female) Normal Values 2D ECHO LV Diastolic Diameter PLAX 4.8 cm 4.2 - 5.9 / 3.9 - 5.3 cm LV Systolic Diameter PLAX 3.9 cm IVS Diastolic Thickness 1.1 cm 0.6 - 1.0 / 0.6 - 0.9 cm LVPW Diastolic Thickness 1.1 cm 0.6 - 1.0 / 0.6 - 0.9 cm LV Relative Wall Thickness 0.5 LVOT Diameter 2.0 cm LV Diastolic Volume MOD BP 73.2 cm??? 67 - 155 / 56 - 104 cm??? LV Systolic Volume MOD BP 33.0 cm??? 22 - 58 / 19 - 49 cm??? LV Ejection Fraction MOD BP 54.9 % >= 55 % LV Cardiac Index MOD BP 1526.7 cm???/min???m??? LV Diastolic Volume MOD 4C 71.8 cm??? LV Systolic Volume MOD 4C 26.0 cm??? LV Ejection Fraction MOD 4C 63.8 % LV Cardiac Index MOD 4C 1739.5 cm???/min???m??? LV Diastolic Length 4C 7.4 cm LV Systolic Length 4C 7.0 cm LV Diastolic Volume MOD 2C 72.0 cm??? LV Systolic Volume MOD 2C 39.6 cm??? LV Ejection Fraction MOD 2C 45.0 % LV Cardiac Index MOD 2C 1231.5 cm???/min???m??? LV Diastolic Length 2C 7.7 cm LV Systolic Length 2C 6.5 cm Ascending Aorta Diameter 3.4 cm M-MODE Aortic Root Diameter MM 3.0 cm LA Systolic Diameter MM 4.0 cm LA Ao Ratio MM 1.3 AV Cusp Separation MM 2.0 cm DOPPLER AV Peak Velocity 119.9 cm/s AV Peak Gradient 5.7 mmHg AV Mean Velocity 84.8 cm/s AV Mean Gradient 3.2 mmHg AV Velocity Time Integral 19.9 cm LVOT Peak Velocity 88.6 cm/s LVOT Peak Gradient 3.1 mmHg LVOT Velocity Time Integral 18.8 cm LVOT Stroke Volume 57.4 cm??? LVOT Stroke Volume Index 25.9 ml/m??? LVOT Cardiac Index 2179.5 cm???/min???m??? AV Area Cont Eq vti 2.9 cm??? AV Area Cont Eq pk 2.3 cm??? Mitral E Point Velocity 61.3 cm/s Mitral A Point Velocity 76.7 cm/s Mitral E to A Ratio 0.8 MV Deceleration Time 135.0 ms LV E' Lateral Velocity 14.2 cm/s Mitral E to LV E' Lateral Ratio 4.3 LV E' Septal Velocity 7.5 cm/s Mitral E to LV E' Septal Ratio 8.1 TR Peak Velocity 260.8 cm/s TR Peak Gradient 27.2 mmHg Right Atrial Pressure 8.0 mmHg Pulmonary Artery Systolic Pressu 35.2 mmHg Right Ventricular Systolic Press 35.2 mmHg FINDINGS Left Ventricle Mildly increased left ventricular wall thickness. Left ventricular cavity size normal. Low normal left ventricular systolic function. Flattened septum in systole and diastole consistent with right ventricle pressure and volume overload. Left ventricular ejection fraction is estimated at 50-55%. Right Ventricle Severe right ventricular dilatation. Moderately reduced right ventricular global systolic function. Moderate pulmonary hypertension. Right Atrium Severe right atrial dilatation. Left Atrium Normal left atrial size. Mitral Valve Structurally normal mitral valve. Trace mitral regurgitation. Aortic Valve Trileaflet aortic valve. No aortic regurgitation. Tricuspid Valve Structurally normal tricuspid valve. Trace tricuspid regurgitation. Pulmonic Valve Structurally normal pulmonic valve. No pulmonic regurgitation. Pericardium No pericardial effusion. Aorta Normal size aortic root and proximal ascending aorta. CONCLUSIONS Normal LV systolic function Severe RV dilatation with reduced RV systolic function Moderate pulmonary hypertension Previewed by: Dr. Terrence Rosen MD (Electronically Signed) Final Date: 23 April 2023 09:39
== END | disposition home or self-care (01) ==
LOC: RADECHMAIN 08:21
PROVIDERS: ATTEND Family Medicine
DX: I50.30 Unspecified diastolic (congestive) heart failure (principal); I27.20 Pulmonary hypertension, unspecified
CPT/HCPCS: 93306

== ENCOUNTER → 2024-07-26 | Outpatient (CLI) | payer MEDICARE, OTHER ==
--- NOTE | 2024-07-26 10:59 | MR ---
EXAMINATION TYPE: MR lumbar spine wo/w con DATE OF EXAM: 07/26/2024 10:27 AM COMPARISON: None. CLINICAL INDICATION: Male, 54 years old with history of M54.16 RADICULOPATHY, LUMBAR REGION, low back pain. IV Contrast: 10 cc Gadobutrol (None if empty) TECHNIQUE: Multiplanar, multisequence images of the lumbar spine were acquired without and with 10 mL intravenou s Gadobutrol gadolinium contrast. Findings: The lumbar vertebral segments are normal in height and alignment there is no fracture or subluxation. The disc spaces are normal in height and signal intensity and there is no significant degenerative di sc disease. There is no lumbar disc herniation or spinal stenosis. There is no neural foraminal stenosis. Following contrast administration, here is no pathological enhancement. There is mild facet arthropathy throughout the lumbar spine, greatest at the L4-5 and L5-S1 levels. The paraspinal soft tissues are unremarkable. IMPRESSION: 1. No lumbar spine fracture or malalignment. 2. No significant degenerative disease. 3. No lumbar disc herniation or spinal stenosis. 4. Mild facet arthropathy throughout the lumbar spine, greatest at the L4-5 and L5-S1 levels. [facility], , 07/26/2024 10:56 AM
== END | disposition home or self-care (01) ==
LOC: RADMRIMAIN 09:35
PROVIDERS: ATTEND Family Medicine
DX: M47.27 Other spondylosis with radiculopathy, lumbosacral region (principal)
CPT/HCPCS: 72158; A9585

== ENCOUNTER → 2024-11-10 | Outpatient (CLI) | payer MEDICARE, OTHER ==
--- NOTE | 2024-11-10 10:34 | CTL ---
EXAMINATION TYPE: CT Low Dose Lung DATE OF EXAM: 11/10/2024 8:53 AM COMPARISON: 03/28/2023 CLINICAL INDICATION: Male, 54 years old with history of Z12.2 SCREENING LUNG CA Z87.891 FORMER SMOKER , SMOKED 1 PACK A DAY FOR 42 YRS. NO LONGER SMOKING, History of tobacco use. TECHNIQUE: Low dose computed tomography scan was performed through the chest at 1 mm thick sections a nd reconstructed images in multiple planes at 1 mm and [address] DLP: 128.2 mGycm, CT CTDI: 3.0 mGy, Automated exposure control for dose reduction was used. CT DIAGNOSTIC QUALITY: Satisfactory FINDINGS: Heart normal size without pericardial effusion. Minimal proximal LAD coronary artery calcifications a re present. Aorta normal caliber with conventional arch vessel branching anatomy. No thoracic lymphadenopathy by CT size criteria. Borderline enlarged caliber main right and left pulmonary arteries up to 2.6 cm may reflect pulmonary arterial hypertension. Mild/moderate diffuse bronchial wall thickening. Some chronic partial volume loss right middle lobe. Scattered subpleural interstitial changes suggesting mild fibrosis. Moderate to advanced emphysematou s change. Biapical pleural-parenchymal scarring. Unchanged 4 mm right lower lobe pulmonary nodule, axial image 211. Additional numerous bilateral 3 mm and smaller calcified and noncalcified pulmonary nodules remain un changed. Small 2.4 cm diverticulum posterior gastric fundus incidentally noted. Bones: No osseous destructive process. IMPRESSION: 1. LungRADS 2, benign. No new or suspicious pulmonary nodules seen. 2. COPD with moderate emphysema. Some underlying mild interstitial fibrosis at the lung bases and chr onic cicatricial atelectasis right middle lobe. CT LUNG RAD AND CT CHEST RECOMMENDATION: Lung-Rad 2 Benign Appearance or Behavior: Continue annual sc reening with LDCT in 12 months. S Modifier (other clinically significant findings): None [facility], Workstation: MARY KATE, 11/10/2024 10:32 AM
== END | disposition home or self-care (01) ==
LOC: RADCTMAIN 08:21
PROVIDERS: ATTEND Family Medicine
DX: Z12.2 Encounter for screening for malignant neoplasm of respiratory organs (principal); Z87.891 Personal history of nicotine dependence; J44.9 Chronic obstructive pulmonary disease, unspecified; J43.9 Emphysema, unspecified; J84.10 Pulmonary fibrosis, unspecified; J98.11 Atelectasis
CPT/HCPCS: 71271